=== PATIENT | male | born 1990 | race Caucasian/White ===

== ENCOUNTER 2016-11-15 05:30 | Emergency (ER) | payer SELFPAY ==
[2016-11-15 06:06] LABS: CHLORIDE,CL 106 mmol/L (98-110); SODIUM,NA 139 mmol/L (136-146)
--- NOTE | 2016-11-15 06:18 | EDM.PDOC ---
ED HISTORY OF PRESENT ILLNESS - General Chief Complaint: Chest Pain Stated Complaint: COLD SYMPTOMS Time Seen by Provider: 11/15/16 05:33 Source of Information: Reports: Patient History Limitations: Reports: No limitations - History of Present Illness INITIAL COMMENTS - FREE TEXT/NARRATIVE: HISTORY AND PHYSICAL: History of present illness: [26-year-old male with a history of bipolar depression and anxiety and psychiatric issues now presents to the emergency department complaining of dry cough for more than a week. Patient's chest is sore from coughing. He is no exertional chest pain. No pleuritic pain. No fevers chills sweats or shaking chills. Patient does not feel short of breath normally only with a coughing attack. Sometimes he coughs and it is hard to stop. no significant productivity to the cough.] Patient has no history of chronic pulmonary problems and no cardiac history Review of systems: As per history of present illness and below otherwise all systems reviewed and negative. Past medical history: As per history of present illness and as reviewed below otherwise noncontributory. Surgical history: As per history of present illness and as reviewed below otherwise noncontributory. Social history: No reported history of drug or alcohol abuse. Family history: As per history of present illness and as reviewed below otherwise noncontributory. Physical exam: HEENT: Atraumatic, normocephalic, pupils reactive, negative for conjunctival pallor or scleral icterus, mucous membranes moist, throat clear, neck supple, nontender, trachea midline. Lungs: Clear to auscultation, breath sounds equal bilaterally, chest nontender. Heart: S1S2, regular, negative for clicks, rubs, or JVD. Abdomen: Soft, nondistended, nontender. Negative for masses or hepatosplenomegaly. Negative for costovertebral tenderness. Pelvis: Stable nontender. Genitourinary: Deferred. Rectal: Deferred. Extremities: Atraumatic, negative for cords or calf pain. Neurovascular unremarkable. Neuro: Awake, alert, oriented. Cranial nerves grossly unremarkable. Cerebellum unremarkable. Motor and sensory unremarkable throughout. Exam nonfocal. Diagnostics: [EKG interpreted by me normal sinus rhythm at 86 normal axis no STEMI Chest x-ray interpreted by me and report reviewed low lung volumes no acute disease] Therapeutics: [] Impression: [] Plan: [Signs and symptoms consistent with URI likely viral. Patient with persistent dry cough for more than a week discussed with him possibility of atypical infection. We'll prescribe Zithromax to cover for this potential. Patient aware of he does not experience significant improvement with antibiotic that it is likely viral and will need to run its course. No use Mucinex DM as well as Tessalon as needed for cough and albuterol MDI as needed for symptomatic relief of coughing and wheezing patient with clearly reproducible chest wall pain secondary to cough. He states this is the chest discomfort that is felt he has no exertional chest pain pleurisy fevers chills sweats or shaking chills patient is well-appearing in stable for outpatient followup. No further workup or treatment indicated at this time. Patient agrees with outpatient followup and strict return precautions given] Definitive disposition and diagnosis as appropriate pending reevaluation and review of above. - Related Data Allergies/ADRs: Allergies Allergy/AdvReac Type Severity Reaction Status Date / Time No Known Allergies Allergy Verified 11/15/16 05:37 Home Meds: Home Meds Gabapentin [Neurontin] 300 mg PO BID 11/26/15 [History] LORazepam [Ativan] 0.5 mg PO TID 12/06/15 [History] FLUoxetine HCl [Prozac] 20 mg PO DAILY 01/30/16 [History] Propranolol [Inderal] 1 tab PO TID 03/16/16 [History] traZODone 1 tab PO DAILY 03/16/16 [History] Albuterol [Proventil HFA] 6.7 gm INH Q4H PRN #1 inhaler 11/15/16 [Rx] Azithromycin [Zithromax] 250 mg PO DAILY #6 tablet 11/15/16 [Rx] Benzonatate 200 mg PO TID #30 capsule 11/15/16 [Rx] Prednisone [IMW: predniSONE] 60 mg PO WITHBREAKFAST #21 tab 11/15/16 [Rx] Past Medical History HEENT History: Reports: None Cardiovascular History: Reports: None Respiratory History: Reports: None Gastrointestinal History: Reports: Irritable bowel syndrome Other Gastrointestinal History: " elevated liver enzymes" Genitourinary History: Reports: None Musculoskeletal History: Reports: None Neurological History: Reports: None Psychiatric History: Reports: Anxiety, Bipolar, Depression Other Psychiatric History: Cutting Endocrine/Metabolic History: Reports: None Other Endocrine/Metabolic History: short stature Hematologic History: Reports: None Immunologic History: Reports: None Oncologic (Cancer) History: Reports: None Dermatologic History: Reports: None - Infectious Disease History Infectious Disease History: Reports: Chicken pox - Past Surgical History Head Surgeries/Procedures: Reports: None HEENT Surgical History: Reports: Other (see below) Other HEENT Surgeries/Procedures: bilateral ear tubes Social & Family History - Family History Family Medical History: Noncontributory - Tobacco Use Smoking Status *Q: Current Every Day Smoker Years of Tobacco use: 2 Packs/Tins Daily: 0.2 Second Hand Smoke Exposure: No - Caffeine Use Caffeine Use: Reports: Tea - Alcohol Use Days Per Week of Alcohol Use: 1 Number of Drinks Per Day: 2 Total Drinks Per Week: 2 - Recreational Drug Use Recreational Drug Use: Yes Drug Use in Last 12 Months: Yes Recreational Drug Type: Reports: Marijuana/Hashish Recreational Drug Use Frequency: Socially Recreational Drug Last Use: one month ago ED ROS GENERAL - Review of Systems Review Of Systems: See Below (History of present illness) ED EXAM, GENERAL - Physical Exam Exam: See Below (History of present illness) Course - Vital Signs Last Recorded V/S: Last Vital Signs Temp 36 C 11/15/16 05:37 Pulse 84 11/15/16 05:37 Resp 16 11/15/16 05:37 BP 138/87 11/15/16 05:37 Pulse Ox 98 11/15/16 05:37 - Orders/Labs/Meds Orders: Active Orders 24 hr Category Date Time Status EKG 12 Lead [EKG Documentation Completion] [RC] STAT Care 11/15/16 05:36 Active Chest 1V Frontal [CR] Stat Exams 11/15/16 05:36 Taken Labs: Laboratory Tests 11/15/16 11/15/16 11/15/16 Range/Units 05:45 05:45 05:45 WBC 10.15 (4.0-11.0) K/uL RBC 5.21 (4.50-5.90) M/uL Hgb 15.3 (13.0-17.0) g/dL Hct 45.5 (38.0-50.0) % MCV 87.3 (80.0-98.0) fL MCH 29.4 (27.0-32.0) pg MCHC 33.6 (31.0-37.0) g/dL RDW Std Deviation 41.9 (28.0-62.0) fl RDW Coeff of Erin 13 (11.0-15.0) % Plt Count 255 (150-400) K/uL MPV 11.10 (7.40-12.00) fL Neut % (Auto) 58.2 (48.0-80.0) % Lymph % (Auto) 32.8 (16.0-40.0) % [place] % (Auto) 7.7 (0.0-15.0) % Eos % (Auto) 1.0 (0.0-7.0) % Baso % (Auto) 0.3 (0.0-1.5) % Neut # (Auto) 5.9 H (1.4-5.7) K/uL Lymph # (Auto) 3.3 H (0.6-2.4) K/uL [place] # (Auto) 0.8 (0.0-0.8) K/uL Eos # (Auto) 0.1 (0.0-0.7) K/uL Baso # (Auto) 0.0 (0.0-0.1) K/uL Nucleated RBC % 0.0 /100WBC Nucleated RBCs # 0 K/uL Sodium 139 (136-146) mmol/L Potassium 3.9 (3.5-5.1) mmol/L Chloride 106 (98-110) mmol/L Carbon Dioxide 22 (21-31) mmol/L BUN 11 (6.0-23.0) mg/dL Creatinine 0.9 (0.6-1.5) mg/dL Est Cr Clr Drug Dosing 87.19 mL/min Estimated GFR (MDRD) > 60.0 ml/min Glucose 99 (60-110) mg/dL Calcium 9.0 (8.8-10.8) mg/dL Total Bilirubin 0.3 (0.1-1.5) mg/dL AST 68 H (5-40) IU/L ALT 127 H (8-54) IU/L Alkaline Phosphatase 67 (40-150) CK-MB (CK-2) 2.5 (0-6.6) ng/ml Troponin I < 0.10 (0.0-0.29) NG/ML Total Protein 7.5 (6.0-8.0) g/dL Albumin 4.1 (3.5-5.0) g/dL Globulin 3.4 (2.0-3.5) g/dL Albumin/Globulin Ratio 1.2 L (1.3-2.8) Departure - Departure Time of Disposition: 06:12 Disposition: Home, Self-Care 01 Condition: good Clinical Impression: Upper respiratory infection, Cough, Chest wall pain Prescriptions: Albuterol [Proventil HFA] 6.7 gm INH Q4H PRN #1 inhaler PRN Reason: Cough Azithromycin [Zithromax] 250 mg PO DAILY #6 tablet Benzonatate 200 mg PO TID #30 capsule Prednisone [IMW: predniSONE] 60 mg PO WITHBREAKFAST #21 tab Referrals: PCP,None [Primary Care Provider] - Forms: ED Department Discharge Additional Instructions: The following information is given to patients seen in the emergency department who are being discharged to home. This information is to outline your options for follow-up care. We provide all patients seen in our emergency department with a follow-up referral. The need for follow-up, as well as the timing and circumstances, are variable depending upon the specifics of your emergency department visit. If you don't have a primary care physician on staff, we will provide you with a referral. We always advise you to contact your personal physician following an emergency department visit to inform them of the circumstance of the visit and for follow-up with them and/or the need for any referrals to a consulting specialist. The emergency department will also refer you to a specialist when appropriate. This referral assures that you have the opportunity for follow-up care with a specialist. All of these measure are taken in an effort to provide you with optimal care, which includes your follow-up. Under all circumstances we always encourage you to contact your private physician who remains a resource for coordinating your care. When calling for follow-up care, please make the office aware that this follow-up is from your recent emergency room visit. If for any reason you are refused follow-up, please contact the [facility] Emergency Department at and asked to speak to the emergency department charge nurse. You have an upper respiratory infection. Use Mucinex DM as needed for cough and to breakup mucus use Tessalon Perles as discussed if you have persistent cough. Giving you an albuterol inhaler use 2 puffs every 4 hours if you find EKG symptomatic relief of your coughing episodes. Finish Zithromax as prescribed and be sure to use a vaporizer at your bedside to help humidify the air. it is likely you will find this soothes your cough. Follow up with your Dr. in the next one to 2 days and return immediately for new severe or worsening symptoms. - My Orders Last 24 Hours: My Active Orders 11/15/16 05:36 EKG 12 Lead [EKG Documentation Completion] [RC] STAT Chest 1V Frontal [CR] Stat - Assessment/Plan Last 24 Hours: My Active Orders 11/15/16 05:36 EKG 12 Lead [EKG Documentation Completion] [RC] STAT Chest 1V Frontal [CR] Stat
[2016-11-15 06:54] VITALS: BP 119/77
--- NOTE | 2016-11-15 11:33 | CR ---
EXAM DATE: 11/15/16 PATIENT'S AGE: 26 Patient: KASSI TREVINO Facility: [place], [place] Site . Site : 1990 Study: XRay Chest [id number]/7/[id number] 6:06:19 AM Ordering Physician: Mitch Reyna Final Report: HISTORY: Cough x1 week, central chest pain x3 days. FINDINGS: AP portable chest radiograph demonstrates low lung volumes. Cardiac silhouette is acceptable size for technique and inspiration. No cephalization is seen. No infiltrate or pleural effusion. No pneumothorax. IMPRESSION: 1. Low lung volumes. 2. No acute cardiopulmonary disease. Dictated by Melissa Rivera MD @ 11/15/2016 6:07:27 AM Dictated by: Melissa Rivera MD @ 11/15/2016 06:07:29 (Electronic Signature) Report Signed by Proxy and Original Signed Document filed in the Medical Record. MTDD
== END 2016-11-15 06:50 | disposition home or self-care (01) ==
LOC: MW.ED 05:30
DX: J06.9 Acute upper respiratory infection, unspecified (principal); R07.89 Other chest pain; F41.9 Anxiety disorder, unspecified; F31.9 Bipolar disorder, unspecified; F17.210 Nicotine dependence, cigarettes, uncomplicated; Z79.899 Other long term (current) drug therapy
CPT/HCPCS: 36415; 71010; 71010-26; 80053; 82553; 84484; 85025; 93005; 99283; 99285-25

== ENCOUNTER 2020-05-07 09:59 | Emergency (ER) | payer MEDICAID, OTHER ==
[2020-05-07] MEDS ORDERED: Sodium Chloride 0.9% 2.5 ML Syringe FLUSH PRN (10:36)
[2020-05-07] MEDS ORDERED: Sodium Chloride 0.9% 10 ML Syringe FLUSH PRN (10:36)
[2020-05-07] MEDS ORDERED: Lactated Ringers 1,000 ML IV ONE (10:38)
[2020-05-07] MEDS ORDERED: Ketorolac 30 MG/ML SDV IVPUSH ONE (10:38)
[2020-05-07] MEDS ORDERED: Ondansetron 4 MG/2 ML SDV IVPUSH ONE (10:38)
--- NOTE | 2020-05-07 10:49 | EDM.PDOC ---
ED HPI GENERAL MEDICAL PROBLEM - General Chief Complaint: Flank Pain Stated Complaint: SIDE PAIN Time Seen by Provider: 05/07/20 10:03 Source of Information: Reports: Patient History Limitations: Reports: No Limitations - History of Present Illness INITIAL COMMENTS - FREE TEXT/NARRATIVE: 29-year-old male with history of IBS, DM 2 presents with left flank pain for 3 days. Pain is described as sharp, intermittent, pleuritic, radiates from the left flank to the left upper quadrant, exacerbated with taking a deep breath and coughing. Denies fever, chills, nausea, vomiting, chest pain, shortness of breath, dysuria, hematuria. Admits to dry cough. ROS: A 10-point review of systems, other than pertinent positives and negatives as stated per HPI, is otherwise negative Past medical history: No additional pertinent history Past Surgical history: No additional pertinent history Social history: No additional pertinent history Family history: No additional pertinent history PHYSICAL EXAM General: AOx4, GCS = 15, mild distress HEENT: dry mucous membrane Neck: supple, no meningismus, no Kernig or Brudzinski Cardiac: S1S2 RRR Respiratory: CTAB, no crackles or rales, no wheezing Abdomen: Soft, nontender, no rebound or guarding, nondistended, no pulsatile mass. Back: nontender Musculoskeletal: NVI distally, no deformity Neuro: No focal deficits, CN 2 - 12 WNL. left flank pain Pain Score (Numeric/FACES): 8 - Related Data Allergies Allergy/AdvReac Type Severity Reaction Status Date / Time No Known Allergies Allergy Verified 05/07/20 10:11 Home Meds: Home Meds Gabapentin [Neurontin] 300 mg PO TID 11/26/15 [History] LORazepam [Ativan] 0.5 mg PO TID 12/06/15 [History] FLUoxetine HCl [Prozac] 20 mg PO DAILY 01/30/16 [History] traZODone 1 tab PO DAILY 03/16/16 [History] ARIPiprazole [Abilify] 2 mg PO BEDTIME 05/07/20 [History] Dicyclomine [Bentyl] 10 mg PO TID 05/07/20 [History] Non-Formulary Medication [NF Drug] 1 each INH ASDIRECTED 05/07/20 [History] Omeprazole Magnesium [Prilosec Otc] 20 mg PO BID #30 tablet. 05/07/20 [Rx] Zolpidem [Ambien] 10 mg PO BEDTIME 05/07/20 [History] lisinopriL [Lisinopril] 10 mg PO DAILY 05/07/20 [History] Past Medical History HEENT History: Reports: None Cardiovascular History: Reports: Hypertension Respiratory History: Reports: None Gastrointestinal History: Reports: Irritable Bowel Syndrome Other Gastrointestinal History: " elevated liver enzymes" Genitourinary History: Reports: None Musculoskeletal History: Reports: None Neurological History: Reports: None Psychiatric History: Reports: Anxiety, Bipolar, Depression Other Psychiatric History: Cutting Endocrine/Metabolic History: Reports: Diabetes, Type II Other Endocrine/Metabolic History: short stature Hematologic History: Reports: None Immunologic History: Reports: None Oncologic (Cancer) History: Reports: None Dermatologic History: Reports: None - Infectious Disease History Infectious Disease History: Reports: Chicken Pox - Past Surgical History Head Surgeries/Procedures: Reports: None HEENT Surgical History: Reports: Other (See Below) Social & Family History - Family History Family Medical History: Noncontributory - Tobacco Use Smoking Status *Q: Former Smoker Used Tobacco, but Quit: Yes Month/Year Tobacco Last Used: 2018 - Caffeine Use Caffeine Use: Reports: Tea - Recreational Drug Use Recreational Drug Use: No ED ROS GENERAL - Review of Systems Review Of Systems: See Below (see dictation) ED EXAM, GI/ABD - Physical Exam Exam: See Below (see dictation) EKG INTERPRETATION EKG Interpretation Comments: [] bpm, NSR, normal QRS interval, no STEMI. EKG and rhythm strip interpreted by me at [] Course - Vital Signs Last Recorded V/S: Last Vital Signs Temp 96.2 F L 05/07/20 10:16 Pulse 84 05/07/20 10:16 Resp 16 05/07/20 10:16 BP 134/84 05/07/20 10:16 Pulse Ox 96 05/07/20 10:16 - Orders/Labs/Meds Orders: Active Orders 24 hr Category Date Time Status Cardiac Monitoring [RC] . DIRECTED Care 05/07/20 10:36 Active EKG Documentation Completion [RC] STAT Care 05/07/20 10:37 Active Pulse Oximetry [RC] ASDIRECTED Care 05/07/20 10:36 Active Sodium Chloride 0.9% [Saline Flush] Med 05/07/20 10:36 Active 10 ml FLUSH ASDIRECTED PRN Sodium Chloride 0.9% [Saline Flush] Med 05/07/20 10:36 Active 2.5 ml FLUSH ASDIRECTED PRN Saline Lock Insert [OM.PC] Stat Oth 05/07/20 10:37 Ordered Medication Orders Sodium Chloride (Saline Flush) 10 ml FLUSH ASDIRECTED PRN PRN Reason: Keep Vein Open Last Admin: 05/07/20 10:45 Dose: 10 ml Documented by: KELLEN Sodium Chloride (Saline Flush) 2.5 ml FLUSH ASDIRECTED PRN PRN Reason: Keep Vein Open Last Admin: 05/07/20 10:45 Dose: 2.5 ml Documented by: KELLEN Labs: Laboratory Tests 05/07/20 05/07/20 05/07/20 Range/Units 10:20 10:20 10:22 WBC 9.96 (4.0-11.0) K/uL RBC 5.40 (4.50-5.90) M/uL Hgb 15.8 (13.0-17.0) g/dL Hct 47.6 (38.0-50.0) % MCV 88.1 (80.0-98.0) fL MCH 29.3 (27.0-32.0) pg MCHC 33.2 (31.0-37.0) g/dL RDW Std Deviation 44.6 (28.0-62.0) fl RDW Coeff of Erin 14 (11.0-15.0) % Plt Count 237 (150-400) K/uL MPV 11.00 (7.40-12.00) fL Neut % (Auto) 53.8 (48.0-80.0) % Lymph % (Auto) 38.3 (16.0-40.0) % [place] % (Auto) 5.4 (0.0-15.0) % Eos % (Auto) 2.3 (0.0-7.0) % Baso % (Auto) 0.2 (0.0-1.5) % Neut # (Auto) 5.4 (1.4-5.7) K/uL Lymph # (Auto) 3.8 H (0.6-2.4) K/uL [place] # (Auto) 0.5 (0.0-0.8) K/uL Eos # (Auto) 0.2 (0.0-0.7) K/uL Baso # (Auto) 0.0 (0.0-0.1) K/uL Nucleated RBC % 0.0 /100WBC Nucleated RBCs # 0 K/uL INR 0.95 D-Dimer, Quantitative 0.24 (0.0-0.50) mg/L FEU Sodium 138 (136-148) mmol/L Potassium 4.3 (3.5-5.1) mmol/L Chloride 103 (98-107) mmol/L Carbon Dioxide 22.4 (21.0-32.0) mmol/L BUN 15 (7.0-18.0) mg/dL Creatinine 0.9 (0.8-1.3) mg/dL Est Cr Clr Drug Dosing 84.88 mL/min Estimated GFR (MDRD) > 60.0 ml/min Glucose 186 H (74-106) mg/dL Calcium 8.6 (8.5-10.1) mg/dL Total Bilirubin 0.2 (0.2-1.0) mg/dL AST 50 H (15-37) IU/L ALT 148 H (14-63) IU/L Alkaline Phosphatase 78 (46-116) U/L Troponin I < 0.050 (0.000-0.056) ng/mL Total Protein 7.8 (6.4-8.2) g/dL Albumin 3.9 (3.4-5.0) g/dL Globulin 3.9 (2.6-4.0) g/dL Albumin/Globulin Ratio 1.0 (0.9-1.6) Lipase 205 (73-393) U/L Urine Color Urine Appearance Urine pH (5.0-8.0) Ur Specific [place] (1.001-1.035) Urine Protein (NEGATIVE) mg/dL Urine Glucose (UA) (NEGATIVE) mg/dL Urine Ketones (NEGATIVE) mg/dL Urine Occult Blood (NEGATIVE) Urine Nitrite (NEGATIVE) Urine Bilirubin (NEGATIVE) Urine Urobilinogen (<2.0) EU/dL Ur Leukocyte Esterase (NEGATIVE) Urine RBC (0-2/HPF) Urine WBC (0-5/HPF) Ur Epithelial Cells (NONE-FEW) Urine Bacteria (NEGATIVE) Urine Mucus (NONE-MOD) 05/07/20 Range/Units 11:31 WBC (4.0-11.0) K/uL RBC (4.50-5.90) M/uL Hgb (13.0-17.0) g/dL Hct (38.0-50.0) % MCV (80.0-98.0) fL MCH (27.0-32.0) pg MCHC (31.0-37.0) g/dL RDW Std Deviation (28.0-62.0) fl RDW Coeff of [place] (11.0-15.0) % Plt Count (150-400) K/uL MPV (7.40-12.00) fL Neut % (Auto) (48.0-80.0) % Lymph % (Auto) (16.0-40.0) % [place] % (Auto) (0.0-15.0) % Eos % (Auto) (0.0-7.0) % Baso % (Auto) (0.0-1.5) % Neut # (Auto) (1.4-5.7) K/uL Lymph # (Auto) (0.6-2.4) K/uL [place] # (Auto) (0.0-0.8) K/uL Eos # (Auto) (0.0-0.7) K/uL Baso # (Auto) (0.0-0.1) K/uL Nucleated RBC % /100WBC Nucleated RBCs # K/uL INR D-Dimer, Quantitative (0.0-0.50) mg/L FEU Sodium (136-148) mmol/L Potassium (3.5-5.1) mmol/L Chloride (98-107) mmol/L Carbon Dioxide (21.0-32.0) mmol/L BUN (7.0-18.0) mg/dL Creatinine (0.8-1.3) mg/dL Est Cr Clr Drug Dosing mL/min Estimated GFR (MDRD) ml/min Glucose (74-106) mg/dL Calcium (8.5-10.1) mg/dL Total Bilirubin (0.2-1.0) mg/dL AST (15-37) IU/L ALT (14-63) IU/L Alkaline Phosphatase (46-116) U/L Troponin I (0.000-0.056) ng/mL Total Protein (6.4-8.2) g/dL Albumin (3.4-5.0) g/dL Globulin (2.6-4.0) g/dL Albumin/Globulin Ratio (0.9-1.6) Lipase (73-393) U/L Urine Color YELLOW Urine Appearance CLEAR Urine pH 5.5 (5.0-8.0) Ur Specific [place] >= 1.030 (1.001-1.035) Urine Protein NEGATIVE (NEGATIVE) mg/dL Urine Glucose (UA) NEGATIVE (NEGATIVE) mg/dL Urine Ketones NEGATIVE (NEGATIVE) mg/dL Urine Occult Blood NEGATIVE (NEGATIVE) Urine Nitrite NEGATIVE (NEGATIVE) Urine Bilirubin NEGATIVE (NEGATIVE) Urine Urobilinogen 0.2 (<2.0) EU/dL Ur Leukocyte Esterase NEGATIVE (NEGATIVE) Urine RBC 0-2 (0-2/HPF) Urine WBC 0-2 (0-5/HPF) Ur Epithelial Cells FEW (NONE-FEW) Urine Bacteria RARE (NEGATIVE) Urine Mucus LIGHT (NONE-MOD) Meds: Medications Generic Name Dose Route Start Last Admin Trade Name Jef PRN Reason Stop Dose Admin Sodium Chloride 10 ml 05/07/20 10:36 05/07/20 10:45 Saline Flush FLUSH 10 ml ASDIRECTED PRN Administration Keep Vein Open Sodium Chloride 2.5 ml 05/07/20 10:36 05/07/20 10:45 Saline Flush FLUSH 2.5 ml ASDIRECTED PRN Administration Keep Vein Open Discontinued Medications Generic Name Dose Route Start Last Admin Trade Name Frecrystal PRN Reason Stop Dose Admin Al Hydroxide/Mg Hydroxide 15 0 ml 05/07/20 13:05 05/07/20 13:13 ml/ Metoclopramide HCl 5 mg/ PO 05/07/20 13:06 1 each Lidocaine HCl 5 ml ONETIME ONE Administration Lactated Ringer's 1,000 mls @ 999 mls/hr 05/07/20 10:38 05/07/20 10:46 Ringers, Lactated IV 05/07/20 11:38 999 mls/hr .BOLUS ONE Administration Pantoprazole Sodium 40 mg/ 20 mls @ 420 mls/hr 05/07/20 13:05 05/07/20 13:16 Sodium Chloride IVPUSH 05/07/20 13:07 420 mls/hr ONETIME ONE Administration Ketorolac Tromethamine 30 mg 05/07/20 10:38 05/07/20 10:46 Toradol IVPUSH 05/07/20 10:39 30 mg ONETIME ONE Administration Ondansetron HCl 4 mg 05/07/20 10:38 05/07/20 10:46 Zofran IVPUSH 05/07/20 10:39 4 mg ONETIME ONE Administration - Re-Assessments/Exams Free Text/Narrative Re-Assessment/Exam: 05/07/20 14:03 After IV Protonix, GI cocktail in the ER, the patient improved and is currently stable for discharge. I performed a repeat exam and did not appreciate new abnormal findings. Patient exhibits normal vital signs and has a normal gait on road test. I advised the patient to return to the ER for reevaluation if symptoms worsened, including fever, worsening pain, or any other worrisome sympt oms. I instructed the patient to follow up with their PCP within 2-3 days. MEDICAL DECISION MAKING: I reviewed the patients past medical records, lab and radiographic findings. I discussed the case with the patient. My differential diagnosis included: Ureterolithiasis, pulmonary embolism, gastritis, GERD, peptic ulcer disease. His abdomen was soft, nontender, no rebound or guarding, I do not suspect surgical abdomen warranting surgery consult. CT did not demonstrate left ureteral stone, his d-dimer was unremarkable, I do not suspect pulmonary embolism, symptoms were resolved after IV PPI and GI cocktail, I suspect gastritis versus peptic ulcer disease. He is stable for outpatient follow-up with GI for further assessment. Departure - Departure Time of Disposition: 14:05 Disposition: Home, Self-Care 01 Condition: Good Clinical Impression: Abdominal pain - Discharge Information *PRESCRIPTION DRUG MONITORING PROGRAM REVIEWED*: Not Applicable *COPY OF PRESCRIPTION DRUG MONITORING REPORT IN PATIENT TABATHA: Not Applicable Prescriptions: Omeprazole Magnesium [Prilosec Otc] 20 mg PO BID #30 tablet.dr Instructions: Abdominal Pain, Adult, [id number] Referrals: Piedad Wall PA [Primary Care Provider] - 1 Week Forms: ED Department Discharge Additional Instructions: The need for follow-up, as well as the timing and circumstances, are variable depending upon the specifics of your emergency department visit. If you don't have a primary care physician on staff, we will provide you with a referral. We always advise you to contact your personal physician following an emergency department visit to inform them of the circumstance of the visit and for follow-up with them and/or the need for any referrals to a consulting specialist. The emergency department will also refer you to a specialist when appropriate. This referral assures that you have the opportunity for follow-up care with a specialist. All of these measure are taken in an effort to provide you with optimal care, which includes your follow-up. Under all circumstances we always encourage you to contact your private physician who remains a resource for coordinating your care. When calling for f ollow-up care, please make the office aware that this follow-up is from your recent emergency room visit. If for any reason you are refused follow-up, please contact the [facility] Emergency Department at and asked to speak to the emergency department charge nurse. If you do not have a primary care doctor, please follow up with the clinics below within 3-5 days. [facility] - Primary Care [address] [place] [id number] [address] Sepsis Event Note (ED) - Evaluation Sepsis Screening Result: No Definite Risk - Focused Exam Vital Signs: Vital Signs Temp Pulse Resp BP Pulse Ox 05/07/20 10:16 96.2 F L 84 16 134/84 96 - My Orders Last 24 Hours: My Active Orders 05/07/20 10:36 Cardiac Monitoring [RC] . DIRECTED Pulse Oximetry [RC] ASDIRECTED Sodium Chloride 0.9% [Saline Flush] 10 ml FLUSH ASDIRECTED PRN Sodium Chloride 0.9% [Saline Flush] 2.5 ml FLUSH ASDIRECTED PRN 05/07/20 10:37 EKG Documentation Completion [RC] STAT Saline Lock Insert [OM.PC] Stat - Assessment/Plan Last 24 Hours: My Active Orders 05/07/20 10:36 Cardiac Monitoring [RC] . DIRECTED Pulse Oximetry [RC] ASDIRECTED Sodium Chloride 0.9% [Saline Flush] 10 ml FLUSH ASDIRECTED PRN Sodium Chloride 0.9% [Saline Flush] 2.5 ml FLUSH ASDIRECTED PRN 05/07/20 10:37 EKG Documentation Completion [RC] STAT Saline Lock Insert [OM.PC] Stat
[2020-05-07 10:55] LABS: BLOOD UREA NITROGEN,BUN 15 mg/dL (7.0-18.0); CARBON DIOXIDE,CO2 22.4 mmol/L (21.0-32.0); CHLORIDE,CL 103 mmol/L (98-107); GLUCOSE RANDOM 186 mg/dL (74-106); LIPASE 205 U/L (73-393); POTASSIUM,K 4.3 mmol/L (3.5-5.1); SODIUM,NA 138 mmol/L (136-148)
--- NOTE | 2020-05-07 11:07 | CR ---
Chest: AP view of the chest was obtained utilizing portable technique. Comparison: Prior chest x-ray of 11/15/16. Heart size and mediastinum are normal. Lungs are clear with no acute parenchymal change. Bony structures are grossly intact. Impression: 1. Nothing acute is seen on portable chest x-ray. Diagnostic code #1 This report was dictated in MDT
--- NOTE | 2020-05-07 12:39 | CT ---
CT abdomen and pelvis Technique: Multiple axial sections were obtained from above the dome of the diaphragm inferiorly through the pubic symphysis. Intravenous and oral contrast not utilized. Study has been performed as a ureteral stone protocol. Findings: Kidneys show no abnormal calcifications. No ureteral dilatation or ureteral stone is seen. No bladder calculi are seen. Lung window settings shows no acute finding within the visualized lung bases. Spleen appears within normal limits. Liver shows diffuse fatty infiltration. Gallbladder contains no calcified gallstones. Adrenal glands show no nodule. Pancreas shows no discrete abnormality. Aorta shows no aneurysm. No retroperitoneal adenopathy or mesenteric abnormalities are seen. Appendix is seen which is normal in size. No free fluid or inflammatory change is appreciated. Bone window settings were reviewed which shows no acute osseous finding. Impression: 1. No renal calculi, ureteral dilatation or ureteral stone is seen. 2. Diffuse fatty infiltration is noted within the liver. 3. Nothing acute is otherwise appreciated on noncontrast CT study of the abdomen and pelvis. No etiology is identified to explain the patient's left flank pain. Diagnostic code #2 This report was dictated in MDT
[2020-05-07] MEDS ORDERED: Alum Hydrox/Mag Hydrox/Simeth 15 ML, Metoclopramide 5 MG, Lidocaine 2% 5 ML PO ONE ×3 (13:05)
[2020-05-07] MEDS ORDERED: Pantoprazole 40 MG in Sodium Chloride 0.9% 20 ML IVPUSH ONE (13:05)
[2020-05-07 15:56] VITALS: BP 139/82; PULSE 80
== END 2020-05-07 14:23 | disposition home or self-care (01) ==
LOC: MW.ED 09:59
DX: R10.11 Right upper quadrant pain (principal); E11.9 Type 2 diabetes mellitus without complications; F41.9 Anxiety disorder, unspecified; F31.9 Bipolar disorder, unspecified; I10 Essential (primary) hypertension; Z87.891 Personal history of nicotine dependence; Z79.899 Other long term (current) drug therapy
CPT/HCPCS: 36415; 71045; 74176; 80053; 81001; 83690; 84484; 85025; 85379; 85610; 93005; 96361; 96374; 96375; 99284; A9270; C9113; J1885; J2405; J7120; 99283

== ENCOUNTER 2020-09-17 20:29 | Emergency (ER) | payer MEDICAID, OTHER ==
--- NOTE | 2020-09-17 20:51 | EDM.PDOC ---
ED HPI GENERAL MEDICAL PROBLEM - General Chief Complaint: Behavioral/Psych Stated Complaint: SUICIDAL IDEATION Time Seen by Provider: 09/17/20 20:42 Source of Information: Reports: Patient History Limitations: Reports: No Limitations - History of Present Illness INITIAL COMMENTS - FREE TEXT/NARRATIVE: 30-year-old with history of bipolar, depression, anxiety, IBS presents with a nxiety and chronic abdominal pain. Abdominal pain is chronic over the past 2 weeks, waxes and wanes, localized to the right upper quadrant, nonradiating, sharp, mild, no alleviating or exacerbating factors. Patient admits to nausea and dry heaving. Patient denies fever, chills, headache, chest pain, shortness of breath, focal numbness or weakness. He also denies suicidal ideation, homicidal ideation, auditory or visual hallucinations. He is requesting to go to [facility] for assessment for his anxiety. ROS: A 10-point review of systems, other than pertinent positives and negatives as stated per HPI, is otherwise negative Past medical history: No additional pertinent history Past Surgical history: No additional pertinent history Social history: No additional pertinent history Family history: No additional pertinent history PHYSICAL EXAM General: AOx4, GCS = 15, No distress HEENT: dry mucous membrane Neck: supple, no meningismus, no Kernig or Brudzinski Cardiac: S1S2 RRR Respiratory: CTAB, no crackles or rales, no wheezing Abdomen: Soft, nontender, no rebound or guarding, nondistended, no pulsatile mass. Back: nontender Musculoskeletal: NVI distally, no deformity Neuro: No focal deficits, CN 2 - 12 WNL. - Related Data Allergies Allergy/AdvReac Type Severity Reaction Status Date / Time No Known Allergies Allergy Verified 09/17/20 20:41 Home Meds: Home Meds ARIPiprazole [Abilify] 2 mg PO DAILY 09/17/20 [History] Dicyclomine [Bentyl] 10 mg PO TID 09/17/20 [History] FLUoxetine HCl [Prozac] 40 mg PO DAILY 09/17/20 [History] LORazepam [Lorazepam] 0.5 mg PO TID PRN 09/17/20 [History] Zolpidem Tartrate [Ambien] 10 mg PO BEDTIME 09/17/20 [History] metFORMIN [Glucophage] 1,000 mg PO BID 09/17/20 [History] ED ROS GENERAL - Review of Systems Review Of Systems: See Below (see dictation) ED EXAM, GENERAL - Physical Exam Exam: See Below (see dictation) #1 Interpretation EKG Interpretation Comments: Heart rate = 87 bpm, normal sinus rhythm, normal QRS interval, no STEMI. EKG and rhythm strip interpreted by me at 2046 Course - Vital Signs Last Recorded V/S: Last Vital Signs Temp 98.1 F 09/17/20 20:35 Pulse 91 09/17/20 20:35 Resp 18 09/17/20 20:35 BP 143/88 H 09/17/20 20:35 Pulse Ox 95 09/17/20 20:35 - Orders/Labs/Meds Orders: Active Orders 24 hr Category Date Time Status EKG Documentation Completion [RC] STAT Care 09/17/20 20:42 Active Labs: Laboratory Tests 09/17/20 09/17/20 09/17/20 Range/Units 20:30 20:30 20:57 WBC 11.77 H (4.0-11.0) K/uL RBC 5.64 (4.50-5.90) M/uL Hgb 16.7 (13.0-17.0) g/dL Hct 49.0 (38.0-50.0) % MCV 86.9 (80.0-98.0) fL MCH 29.6 (27.0-32.0) pg MCHC 34.1 (31.0-37.0) g/dL RDW Std Deviation 42.0 (28.0-62.0) fl RDW Coeff of Erin 13 (11.0-15.0) % Plt Count 273 (150-400) K/uL MPV 11.40 (7.40-12.00) fL Neut % (Auto) 51.6 (48.0-80.0) % Lymph % (Auto) 35.2 (16.0-40.0) % [place] % (Auto) 11.6 (0.0-15.0) % Eos % (Auto) 1.3 (0.0-7.0) % Baso % (Auto) 0.3 (0.0-1.5) % Neut # (Auto) 6.1 H (1.4-5.7) K/uL Lymph # (Auto) 4.1 H (0.6-2.4) K/uL [place] # (Auto) 1.4 H (0.0-0.8) K/uL Eos # (Auto) 0.2 (0.0-0.7) K/uL Baso # (Auto) 0.0 (0.0-0.1) K/uL Nucleated RBC % 0.0 /100WBC Nucleated RBCs # 0 K/uL Sodium (136-148) mmol/L Potassium (3.5-5.1) mmol/L Chloride (98-107) mmol/L Carbon Dioxide (21.0-32.0) mmol/L BUN (7.0-18.0) mg/dL Creatinine (0.8-1.3) mg/dL Est Cr Clr Drug Dosing mL/min Estimated GFR (MDRD) ml/min Glucose (74-106) mg/dL Calcium (8.5-10.1) mg/dL Magnesium (1.8-2.4) mg/dL Total Bilirubin (0.2-1.0) mg/dL AST (15-37) IU/L ALT (14-63) IU/L Alkaline Phosphatase (46-116) U/L Total Protein (6.4-8.2) g/dL Albumin (3.4-5.0) g/dL Globulin (2.6-4.0) g/dL Albumin/Globulin Ratio (0.9-1.6) Lipase (73-393) U/L TSH 3rd Generation (0.36-3.74) uIU/mL Urine Color YELLOW Urine Appearance SLT CLOUDY Urine pH 5.5 (5.0-8.0) Ur Specific [place] >= 1.030 (1.001-1.035) Urine Protein TRACE H (NEGATIVE) mg/dL Urine Glucose (UA) NEGATIVE (NEGATIVE) mg/dL Urine Ketones NEGATIVE (NEGATIVE) mg/dL Urine Occult Blood NEGATIVE (NEGATIVE) Urine Nitrite NEGATIVE (NEGATIVE) Urine Bilirubin NEGATIVE (NEGATIVE) Urine Urobilinogen 0.2 (<2.0) EU/dL Ur Leukocyte Esterase NEGATIVE (NEGATIVE) U Hyaline Cast (Auto) 0-1 (0-2/LPF) Urine RBC 0-2 (0-2/HPF) Urine WBC 0-2 (0-5/HPF) Ur Epithelial Cells RARE (NONE-FEW) Amorphous Sediment LIGHT (NEGATIVE) Urine Bacteria FEW (NEGATIVE) Urine Mucus LIGHT (NONE-MOD) Salicylates (0-20) mg/dL Urine Opiates Screen NEGATIVE (NEGATIVE) Ur Oxycodone Screen NEGATIVE (NEGATIVE) Urine Methadone Screen NEGATIVE (NEGATIVE) Acetaminophen ug/mL Ur Barbiturates Screen NEGATIVE (NEGATIVE) Ur Phencyclidine Scrn POSITIVE (NEGATIVE) Ur Amphetamine Screen NEGATIVE (NEGATIVE) U Methamphetamines Scrn NEGATIVE (NEGATIVE) U Benzodiazepines Scrn NEGATIVE (NEGATIVE) U Cocaine Metab Screen NEGATIVE (NEGATIVE) U Marijuana (THC) Screen POSITIVE (NEGATIVE) Ethyl Alcohol mg/dL 09/17/20 09/17/20 Range/Units 20:57 20:57 WBC (4.0-11.0) K/uL RBC (4.50-5.90) M/uL Hgb (13.0-17.0) g/dL Hct (38.0-50.0) % MCV (80.0-98.0) fL MCH (27.0-32.0) pg MCHC (31.0-37.0) g/dL RDW Std Deviation (28.0-62.0) fl RDW Coeff of Erin (11.0-15.0) % Plt Count (150-400) K/uL MPV (7.40-12.00) fL Neut % (Auto) (48.0-80.0) % Lymph % (Auto) (16.0-40.0) % [place] % (Auto) (0.0-15.0) % Eos % (Auto) (0.0-7.0) % Baso % (Auto) (0.0-1.5) % Neut # (Auto) (1.4-5.7) K/uL Lymph # (Auto) (0.6-2.4) K/uL [place] # (Auto) (0.0-0.8) K/uL Eos # (Auto) (0.0-0.7) K/uL Baso # (Auto) (0.0-0.1) K/uL Nucleated RBC % /100WBC Nucleated RBCs # K/uL Sodium 140 (136-148) mmol/L Potassium 4.0 (3.5-5.1) mmol/L Chloride 103 (98-107) mmol/L Carbon Dioxide 24.4 (21.0-32.0) mmol/L BUN 29 H (7.0-18.0) mg/dL Creatinine 1.3 (0.8-1.3) mg/dL Est Cr Clr Drug Dosing 58.23 mL/min Estimated GFR (MDRD) > 60.0 ml/min Glucose 159 H (74-106) mg/dL Calcium 10.0 (8.5-10.1) mg/dL Magnesium 2.3 (1.8-2.4) mg/dL Total Bilirubin 0.5 (0.2-1.0) mg/dL AST 40 H (15-37) IU/L ALT 108 H (14-63) IU/L Alkaline Phosphatase 63 (46-116) U/L Total Protein 8.7 H (6.4-8.2) g/dL Albumin 4.3 (3.4-5.0) g/dL Globulin 4.4 H (2.6-4.0) g/dL Albumin/Globulin Ratio 1.0 (0.9-1.6) Lipase 547 H (73-393) U/L TSH 3rd Generation 1.78 (0.36-3.74) uIU/mL Urine Color Urine Appearance Urine pH (5.0-8.0) Ur Specific [place] (1.001-1.035) Urine Protein (NEGATIVE) mg/dL Urine Glucose (UA) (NEGATIVE) mg/dL Urine Ketones (NEGATIVE) mg/dL Urine Occult Blood (NEGATIVE) Urine Nitrite (NEGATIVE) Urine Bilirubin (NEGATIVE) Urine Urobilinogen (<2.0) EU/dL Ur Leukocyte Esterase (NEGATIVE) U Hyaline Cast (Auto) (0-2/LPF) Urine RBC (0-2/HPF) Urine WBC (0-5/HPF) Ur Epithelial Cells (NONE-FEW) Amorphous Sediment (NEGATIVE) Urine Bacteria (NEGATIVE) Urine Mucus (NONE-MOD) Salicylates 1.4 (0-20) mg/dL Urine Opiates Screen (NEGATIVE) Ur Oxycodone Screen (NEGATIVE) Urine Methadone Screen (NEGATIVE) Acetaminophen <2.0 ug/mL Ur Barbiturates Screen (NEGATIVE) Ur Phencyclidine Scrn (NEGATIVE) Ur Amphetamine Screen (NEGATIVE) U Methamphetamines Scrn (NEGATIVE) U Benzodiazepines Scrn (NEGATIVE) U Cocaine Metab Screen (NEGATIVE) U Marijuana (THC) Screen (NEGATIVE) Ethyl Alcohol < 3.0 mg/dL Meds: Medications Discontinued Medications Generic Name Dose Route Start Last Admin Trade Name Jef PRN Reason Stop Dose Admin Morphine Sulfate 4 mg 09/17/20 22:01 09/17/20 22:13 Morphine IVPUSH 09/17/20 22:02 Not Given ONETIME ONE - Re-Assessments/Exams Free Text/Narrative Re-Assessment/Exam: 09/17/20 22:55 He is currently stable for discharge to [facility] for his anxiety. I performed a repeat exam and did not appreciate new abnormal findings. Patient exhibits normal vital signs and has a normal gait on road test. I advised the patient to return to the ER for reevaluation if symptoms worsened, including fever, worsening pain, or any other worrisome symptoms. I instructed the patient to follow up with their PCP within 2-3 days. MEDICAL DECISION MAKING: I reviewed the patients past medical records, lab and radiographic findings. I discussed the case with the patient. My differential diagnosis included: IBS, colitis, obstruction, pancreatitis. His lipase was slightly elevated, however his exam is benign, I do not suspect need for hosp italization for pain control. Patient will be discharged to [facility] for his anxiety. Departure - Departure Time of Disposition: 22:56 Disposition: Home, Self-Care 01 Condition: Good Clinical Impression: Anxiety, Abdominal pain - Discharge Information *PRESCRIPTION DRUG MONITORING PROGRAM REVIEWED*: Not Applicable *COPY OF PRESCRIPTION DRUG MONITORING REPORT IN PATIENT TABATHA: Not Applicable Instructions: Abdominal Pain, Adult, [id number], Managing Anxiety, Adult Referrals: Piedad Wall PA [Primary Care Provider] - 3 Days Forms: ED Department Discharge Additional Instructions: The need for follow-up, as well as the timing and circumstances, are variable depending upon the specifics of your emergency department visit. If you don't have a primary care physician on staff, we will provide you with a referral. We always advise you to contact your personal physician following an emergency department visit to inform them of the circumstance of the visit and for follow-up with them and/or the need for any referrals to a consulting specialist. The emergency department will also refer you to a specialist when appropriate. This referral assures that you have the opportunity for follow-up care with a specialist. All of these measure are taken in an effort to provide you with optimal care, which includes your follow-up. Under all circumstances we always encourage you to contact your private physician who remains a resource for coordinating your care. When calling for f ollow-up care, please make the office aware that this follow-up is from your recent emergency room visit. If for any reason you are refused follow-up, please contact the [facility] Emergency Department at and asked to speak to the emergency department charge nurse. If you do not have a primary care doctor, please follow up with the clinics below within 3-5 days. [facility] - Primary Care [address] [place] [id number] [address] Sepsis Event Note (ED) - Focused Exam Vital Signs: Vital Signs Temp Pulse Resp BP Pulse Ox 09/17/20 20:35 98.1 F 91 18 143/88 H 95 - My Orders Last 24 Hours: My Active Orders 09/17/20 20:42 EKG Documentation Completion [RC] STAT - Assessment/Plan Last 24 Hours: My Active Orders 09/17/20 20:42 EKG Documentation Completion [RC] STAT
[2020-09-17 21:33] LABS: BLOOD UREA NITROGEN,BUN 29 mg/dL (7.0-18.0); CARBON DIOXIDE,CO2 24.4 mmol/L (21.0-32.0); CHLORIDE,CL 103 mmol/L (98-107); GLUCOSE RANDOM 159 mg/dL (74-106); SODIUM,NA 140 mmol/L (136-148)
[2020-09-17 21:35] LABS: ACETAMINOPHEN <2.0 ug/mL
[2020-09-17] MEDS ORDERED: Morphine 4 MG/ML Syringe IVPUSH ONE (22:01)
--- NOTE | 2020-09-17 22:39 | CR ---
Indication: Right-sided abdominal pain Technique: Abdomen 1 view Comparison: None Findings/Impression: No dilated loops of large or small intestine. No abnormal calcifications. Osseous structures unremarkable. Lung bases clear. Dictated by Jaylen Lau MD @ Sep 17 2020 10:35PM Signed by Dr. Jaylen Lau @ Sep 17 2020 10:36PM
[2020-09-17 23:50] VITALS: BP 136/72; PULSE 72
== END 2020-09-17 23:50 | disposition home or self-care (01) ==
LOC: MERGE 20:29 → MW.ED 20:29
DX: F41.9 Anxiety disorder, unspecified (principal); R10.11 Right upper quadrant pain
CPT/HCPCS: 36415; 74018; 74018-26; 80053; 80143; 80179; 80305-QW; 80307; 81001; 83690; 83735; 84443; 85025; 93005; 93010; 99283; 99284-25

== ENCOUNTER 2020-12-27 22:10 | Emergency (ER) | payer MEDICAID ==
--- NOTE | 2020-12-27 23:01 | EDM.PDOC ---
ED HPI GENERAL MEDICAL PROBLEM - General Chief Complaint: Behavioral/Psych Stated Complaint: SUIDIAL THOUGHTS Time Seen by Provider: 12/27/20 22:20 - History of Present Illness INITIAL COMMENTS - FREE TEXT/NARRATIVE: HISTORY AND PHYSICAL: History of present illness: This is a 30-year-old gentleman with a history significant for anxiety, bipolar, depression who presents ER today secondary to having fleeting thoughts of suicidal ideation after having an argument with his mother. Patient reports that he was having a political argument with his mother earlier today and felt like he was not being heard by his mom so he got up and left her home. While he was leaving she asked him to not stay at the house and to go back to his apartment. Patient went back to the apartment and was depressed over the argument and when having fleeting thoughts about taking his Prozac followed by cough syrup. Patient reports he has never had any prior suicidal ideation or attempts. Patient reports that he would never harm himself and would have no intent of actually following through that but did not like having the thoughts he was having so he came to the ED for further evaluation. Patient reports while he was walking here his thoughts the escalated and he is no longer having suicidal thoughts. Patient denies any other symptomatology. Patient has any recent fevers, shakes, chills, nausea, vomiting, diarrhea, dysuria, frequency, urgency, chest pain, shortness of breath. Patient reports that he is here because he just wishes to be heard which was something that his family does not do for him. Review of systems: As per history of present illness and below otherwise all systems reviewed and negative. Past medical history: As per history of present illness and as reviewed below otherwise noncontributory. Surgical history: As per history of present illness and as reviewed below otherwise noncontributory. Social history: No reported history of drug abuse. Family history: As per history of present illness and as reviewed below otherwise noncontributory. Physical exam: This patient was seen and evaluated during the 2019 SARS-CoV-2 novel coronavirus pandemic period. Community viral transmission is ongoing at time of this encounter and the emergency department is operating under pandemic response procedures. Constitutional: Patient is oriented to person, place, and time. Appears well- developed and well-nourished. No distress. HEENT: Moist mucous membranes Head: Normocephalic and atraumatic Eyes: Right eye exhibits no discharge. Left eye exhibits no discharge. No scleral icterus Neck: Normal range of motion. No tracheal deviation present. Cardiovascular: Normal rate and regular rhythm. Pulmonary: Effort normal, no respiratory distress. Abdominal: No distention Musculoskeletal: Normal range of motion Neurologic: Alert and oriented to person, place and time. Skin: [place], warm and dry. Psychiatric: Normal mood and affect. Behavior is normal. Judgment and thought content normal. Nursing note and vital signs have been reviewed Patient denies any SI/HI. Patient denies any auditory visual hallucinations. Diagnostics: [] Therapeutics: [] Assessment and plan: This is a 30-year-old gentleman who presents ER today secondary to depression and having fleeting thoughts of SI earlier today. Patient reports currently he is not having any suicidal thoughts but came here in order to have some to speak to. He reports that he walked from his apartment to the ER and during his walk he felt much better. Patient reports he does see a psychiatrist over at [facility]. We did speak to [facility] and spoke to one of the counselors, Mercy who spoke to him on the phone. She reports that at this time he is not suicidal and she was able to verbally contract for safety with him. She feels comfortable with the plan to discharge him to home does not feel inpatient treatment is needed at this time. I agree with her assessment as well. Patient will follow up with them tomorrow to speak to a counselor regarding the stressors of today. I have discussed with the patient and he is in total agreement with this plan and reports that if he starts having any further thoughts of harming self he will call the crisis center at [place] or return to the ED for further treatment. Patient reports he does not have any intention of harming himself nor has he had any intention of actually following through with his thoughts. Reassessment at the time of disposition demonstrates that the patient is in no acute distress. The patient has remained stable throughout the entire ED visit and is without objective evidence for acute process requiring urgent intervention or hospitalization. The patient is stable for discharge, counseling is provided as documented above, discussed symptomatic treatment and specific conditions for return. I have spoken with the patient/caregiver and discussed todays findings, in addition to providing specific details for the plan of care. Questions are answered and there is agreement with the plan. Definitive disposition and diagnosis as appropriate pending reevaluation and review of above. - Related Data Allergies Allergy/AdvReac Type Severity Reaction Status Date / Time No Known Allergies Allergy Verified 09/19/20 07:18 Home Meds: Home Meds Gabapentin [Neurontin] 300 mg PO TID 11/26/15 [History] LORazepam [Ativan] 0.5 mg PO TID 12/06/15 [History] FLUoxetine HCl [Prozac] 20 mg PO DAILY 01/30/16 [History] traZODone 1 tab PO DAILY 03/16/16 [History] ARIPiprazole [Abilify] 2 mg PO BEDTIME 05/07/20 [History] Dicyclomine [Bentyl] 10 mg PO TID 05/07/20 [History] Non-Formulary Medication [NF Drug] 1 each INH ASDIRECTED 05/07/20 [History] Omeprazole Magnesium [Prilosec Otc] 20 mg PO BID #30 tablet. 05/07/20 [Rx] Zolpidem [Ambien] 10 mg PO BEDTIME 05/07/20 [History] lisinopriL [Lisinopril] 10 mg PO DAILY 05/07/20 [History] ARIPiprazole [Abilify] 2 mg PO DAILY 09/17/20 [History] Dicyclomine [Bentyl] 10 mg PO TID 09/17/20 [History] FLUoxetine HCl [Prozac] 40 mg PO DAILY 09/17/20 [History] LORazepam [Lorazepam] 0.5 mg PO TID PRN 09/17/20 [History] Zolpidem Tartrate [Ambien] 10 mg PO BEDTIME 09/17/20 [History] metFORMIN [Glucophage] 1,000 mg PO BID 09/17/20 [History] Past Medical History HEENT History: Reports: None Cardiovascular History: Reports: Hypertension Respiratory History: Reports: None Gastrointestinal History: Reports: Irritable Bowel Syndrome Other Gastrointestinal History: " elevated liver enzymes" Genitourinary History: Reports: None Musculoskeletal History: Reports: None Neurological History: Reports: None Psychiatric History: Reports: Anxiety, Bipolar, Depression Other Psychiatric History: Cutting Endocrine/Metabolic History: Reports: Diabetes, Type II Other Endocrine/Metabolic History: short stature Hematologic History: Reports: None Immunologic History: Reports: None Oncologic (Cancer) History: Reports: None Dermatologic History: Reports: None - Infectious Disease History Infectious Disease History: Reports: Chicken Pox, None - Past Surgical History Head Surgeries/Procedures: Reports: None HEENT Surgical History: Reports: Myringotomy w Tube(s), Other (See Below) Other HEENT Surgeries/Procedures: bilateral ear tubes Cardiovascular Surgical History: Reports: None Respiratory Surgical History: Reports: None GI Surgical History: Reports: None Male Surgical History: Reports: None Endocrine Surgical History: Reports: None Neurological Surgical History: Reports: None Musculoskeletal Surgical History: Reports: None Dermatological Surgical History: Reports: None Social & Family History - Family History Family Medical History: No Pertinent Family History - Tobacco Use Tobacco Use Status *Q: Never Tobacco User Second Hand Smoke Exposure: No - Caffeine Use Caffeine Use: Reports: None - Recreational Drug Use Recreational Drug Use: No ED ROS GENERAL - Review of Systems Review Of Systems: See Below ED EXAM, GENERAL - Physical Exam Exam: See Below Course - Vital Signs Last Recorded V/S: Last Vital Signs Temp 98.4 F 12/27/20 22:16 Pulse 110 H 12/27/20 22:16 Resp 20 12/27/20 22:16 BP 148/95 H 12/27/20 22:16 Pulse Ox 97 12/27/20 22:16 Departure - Departure Time of Disposition: 23:00 Disposition: Home, Self-Care 01 Condition: Good Clinical Impression: Bipolar 1 disorder, depressed, Depression - Discharge Information Instructions: Major Depressive Disorder, Adult Referrals: PCP,None [Primary Care Provider] - Additional Instructions: You were seen and evaluated in the ER today secondary to fleeting thoughts of wanting to harm himself. At this time you are reporting that you have no desire to harm yourself and you feel comfortable with going home. You will be given the phone number for the [place] crisis center if you should have any further thoughts please give them a call or call 911 and have him transferred to the ER for us to further evaluate. We have spoken to Mercy at the [facility] and she will make sure that you are able to be seen by a counselor tomorrow to discuss the stressors of today. The following information is given to patients seen in the emergency department who are being discharged to home. This information is to outline your options for follow-up care. We provide all patients seen in our emergency department with a follow-up referral. The need for follow-up, as well as the timing and circumstances, are variable depending upon the specifics of your emergency department visit. If you don't have a primary care physician on staff, we will provide you with a referral. We always advise you to contact your personal physician following an emergency department visit to inform them of the circumstance of the visit and for follow-up with them and/or the need for any referrals to a consulting specialist. The emergency department will also refer you to a specialist when appropriate. This referral assures that you have the opportunity for follow-up care with a specialist. All of these measure are taken in an effort to provide you with optimal care, which includes your follow-up. Under all circumstances we always encourage you to contact your private physician who remains a resource for coordinating your care. When calling for follow-up care, please make the office aware that this follow-up is from your recent emergency room visit. If for any reason you are refused follow-up, please contact the [facility] Emergency Department at and asked to speak to the emergency department charge nurse. [facility] - Primary Care [address] [place] [id number] [address] Sepsis Event Note (ED) - Evaluation Sepsis Screening Result: No Definite Risk - Focused Exam Vital Signs: Vital Signs Temp Pulse Resp BP Pulse Ox 12/27/20 22:16 98.4 F 110 H 20 148/95 H 97
[2020-12-27 23:12] VITALS: BP 138/90; PULSE 98
== END 2020-12-27 23:12 | disposition home or self-care (01) ==
LOC: MW.ED 22:10
DX: F32.9 Major depressive disorder, single episode, unspecified (principal); E11.9 Type 2 diabetes mellitus without complications; Z79.84 Long term (current) use of oral hypoglycemic drugs; Z79.899 Other long term (current) drug therapy
CPT/HCPCS: 99283; 99284

== ENCOUNTER 2021-03-13 17:15 | Emergency (ER) | payer MEDICAID ==
--- NOTE | 2021-03-13 19:15 | EDM.PDOC ---
ED HPI GENERAL MEDICAL PROBLEM - General Chief Complaint: General Stated Complaint: FOOT BLISTERS Time Seen by Provider: 03/13/21 17:24 - History of Present Illness INITIAL COMMENTS - FREE TEXT/NARRATIVE: 30-year-old male who does not have transportation has a history of type 2 diabetes who is presenting with painful blisters to see his feet. He reports this is a common problem for him as he often spends a long time without taking his shoes and socks often has to walk everywhere. He is concerned because he does not want him to get infected. No fevers no other complaints at this time. The pain in his feet is moderate and worsens with ambulation. bilateral feet Pain Score (Numeric/FACES): 4 - Related Data Allergies Allergy/AdvReac Type Severity Reaction Status Date / Time No Known Allergies Allergy Verified 03/13/21 17:31 Home Meds: Home Meds Gabapentin [Neurontin] 300 mg PO TID 11/26/15 [History] LORazepam [Ativan] 0.5 mg PO TID 12/06/15 [History] FLUoxetine HCl [Prozac] 20 mg PO DAILY 01/30/16 [History] ARIPiprazole [Abilify] 2 mg PO BEDTIME 05/07/20 [History] Dicyclomine [Bentyl] 10 mg PO TID 05/07/20 [History] Non-Formulary Medication [NF Drug] 1 each INH ASDIRECTED 05/07/20 [History] Zolpidem [Ambien] 10 mg PO BEDTIME 05/07/20 [History] lisinopriL [Lisinopril] 10 mg PO DAILY 05/07/20 [History] ARIPiprazole [Abilify] 2 mg PO DAILY 09/17/20 [History] Dicyclomine [Bentyl] 10 mg PO TID 09/17/20 [History] FLUoxetine HCl [Prozac] 40 mg PO DAILY 09/17/20 [History] LORazepam [Lorazepam] 0.5 mg PO TID PRN 09/17/20 [History] Zolpidem Tartrate [Ambien] 10 mg PO BEDTIME 09/17/20 [History] metFORMIN [Glucophage] 1,000 mg PO BID 09/17/20 [History] Past Medical History HEENT History: Reports: None Cardiovascular History: Reports: Hypertension Respiratory History: Reports: None Gastrointestinal History: Reports: Irritable Bowel Syndrome Other Gastrointestinal History: " elevated liver enzymes" Genitourinary History: Reports: None Musculoskeletal History: Reports: None Neurological History: Reports: None Psychiatric History: Reports: Anxiety, Bipolar, Depression Other Psychiatric History: Cutting Endocrine/Metabolic History: Reports: Diabetes, Type II Other Endocrine/Metabolic History: short stature Hematologic History: Reports: None Immunologic History: Reports: None Oncologic (Cancer) History: Reports: None Dermatologic History: Reports: None - Infectious Disease History Infectious Disease History: Reports: Chicken Pox, None - Past Surgical History Head Surgeries/Procedures: Reports: None HEENT Surgical History: Reports: Myringotomy w Tube(s), Other (See Below) Other HEENT Surgeries/Procedures: bilateral ear tubes Cardiovascular Surgical History: Reports: None Respiratory Surgical History: Reports: None GI Surgical History: Reports: None Male Surgical History: Reports: None Endocrine Surgical History: Reports: None Neurological Surgical History: Reports: None Musculoskeletal Surgical History: Reports: None Dermatological Surgical History: Reports: None Social & Family History - Family History Family Medical History: No Pertinent Family History - Tobacco Use Tobacco Use Status *Q: Current Every Day Tobacco User Years of Tobacco use: 15 Packs/Tins Daily: 0.2 Second Hand Smoke Exposure: No - Caffeine Use Caffeine Use: Reports: None - Recreational Drug Use Recreational Drug Use: Yes Drug Use in Last 12 Months: Yes Recreational Drug Type: Reports: Marijuana/Hashish ED ROS GENERAL - Review of Systems Review Of Systems: See Below Free Text/Narrative/Comment: General: No fever. Skin: Per HPI Musculoskeletal: No myalgias/arthralgias. Neurologic: No headache. ED EXAM, GENERAL - Physical Exam Exam: See Below Free Text/Narrative:: General Appearance: No acute distress, appears comfortable Skin: Healthy appearing blisters on each foot one is on the head of the first metatarsal of the left foot the other is on the side of the right great toe they are not tense there is minimal fluid within them there really more of a callus at this point. No active drainage no surrounding erythema no exudate foot is warm and well perfused HEENT: Normocephalic/atraumatic, sclera anicteric, mucous membranes moist Neck: Normal range of motion Musculoskeletal: No edema or tenderness Neurologic: Awake, alert, no obvious deficits, moving all extremities Psychiatric: Appropriate, cooperative Course - Vital Signs Last Recorded V/S: Last Vital Signs Temp 98.2 F 03/13/21 18:57 Pulse 94 03/13/21 18:57 Resp 18 03/13/21 18:57 BP 123/78 03/13/21 18:57 Pulse Ox 96 03/13/21 18:57 Departure - Departure Time of Disposition: 19:14 Disposition: Home, Self-Care 01 Condition: Good Clinical Impression: Blister of foot without infection - Discharge Information *PRESCRIPTION DRUG MONITORING PROGRAM REVIEWED*: Not Applicable *COPY OF PRESCRIPTION DRUG MONITORING REPORT IN PATIENT TABATHA: Not Applicable Instructions: Blisters, Adult Referrals: Piedad Wall PA [Primary Care Provider] - Additional Instructions: It is important that at least a few times every day you find a place where you can sit and take your shoes and socks off for at least 15 to 30 minutes to let everything dry. Preventing your feet from getting damp will help minimize blister formation. If you develop worsening pain spreading redness or fever please see your doctor or return to the ER. The following information is given to patients seen in the emergency department who are being discharged to home. This information is to outline your options for follow-up care. We provide all patients seen in our emergency department with a follow-up referral. The need for follow-up, as well as the timing and circumstances, are variable depending upon the specifics of your emergency department visit. If you don't have a primary care physician on staff, we will provide you with a referral. We always advise you to contact your personal physician following an emergency department visit to inform them of the circumstance of the visit and for follow-up with them and/or the need for any referrals to a consulting specialist. The emergency department will also refer you to a specialist when appropriate. This referral assures that you have the opportunity for follow-up care with a specialist. All of these measure are taken in an effort to provide you with optimal care, which includes your follow-up. Under all circumstances we always encourage you to contact your private physician who remains a resource for coordinating your care. When calling for follow-up care, please make the office aware that this follow-up is from your recent emergency room visit. If for any reason you are refused follow-up, please contact the [facility] Emergency Department at and asked to speak to the emergency department charge nurse. Sepsis Event Note (ED) - Evaluation Sepsis Screening Result: No Definite Risk - Focused Exam Vital Signs: Vital Signs Temp Pulse Resp BP Pulse Ox 03/13/21 18:57 98.2 F 94 18 123/78 96 03/13/21 17:26 97.4 F 102 H 18 134/85 98 - Assessment/Plan Assessment:: 30-year-old male presenting with bilateral foot blisters due to excessive walking and wet socks. No sign of trench foot we do not have any moleskin available so they were dressed with Band-Aids. 2 sets of dry socks were provided for the patient. Wound care discussed and understood.
[2021-03-13 19:28] VITALS: BP 122/86; PULSE 95
== END 2021-03-13 19:26 | disposition home or self-care (01) ==
LOC: MW.ED 17:15
DX: S90.822A Blister (nonthermal), left foot, initial encounter (principal); S90.821A Blister (nonthermal), right foot, initial encounter; I10 Essential (primary) hypertension; E11.9 Type 2 diabetes mellitus without complications; Z72.0 Tobacco use; Z79.899 Other long term (current) drug therapy; X58.XXXA Exposure to other specified factors, initial encounter
CPT/HCPCS: 99282

== ENCOUNTER 2021-03-21 13:17 | Emergency (ER) | payer MEDICAID ==
--- NOTE | 2021-03-21 13:41 | EDM.PDOC ---
ED HPI GENERAL MEDICAL PROBLEM - General Chief Complaint: Lower Extremity Injury/Pain Stated Complaint: both feet are very painful Time Seen by Provider: 03/21/21 13:36 - History of Present Illness INITIAL COMMENTS - FREE TEXT/NARRATIVE: HISTORY AND PHYSICAL: History of present illness: This is a 30-year-old gentleman who presents to the ER today complaining of pain to both feet secondary to walking a lot. Patient reports that he was told by his doctor that he should walk a lot to help with weight loss. Patient reports that when he had blisters in the past he is come to the ED and he received the medical socks which assisted with his blisters. Patient reports that he does have a history of type 2 diabetes. Patient has any recent fevers, shakes, chills, nausea, vomiting, diarrhea, dysuria, frequency, urgency. Patient denies any other symptoms. Review of systems: As per history of present illness and below otherwise all systems reviewed and negative. Past medical history: As per history of present illness and as reviewed below otherwise noncontributory. Surgical history: As per history of present illness and as reviewed below otherwise noncontributory. Social history: No reported history of drug abuse. Family history: As per history of present illness and as reviewed below otherwise noncontributory. Physical exam: This patient was seen and evaluated during the 2019 SARS-CoV-2 novel coronavirus pandemic period. Community viral transmission is ongoing at time of this encounter and the emergency department is operating under pandemic response procedures. Constitutional: Patient is oriented to person, place, and time. Appears well- developed and well-nourished. No distress. HEENT: Moist mucous membranes Head: Normocephalic and atraumatic Eyes: Right eye exhibits no discharge. Left eye exhibits no discharge. No scleral icterus Neck: Normal range of motion. No tracheal deviation present. Cardiovascular: Normal rate and regular rhythm. Pulmonary: Effort normal, no respiratory distress. Abdominal: No distention Musculoskeletal: Normal range of motion Neurologic: Alert and oriented to person, place and time. Skin: [place], warm and dry. Psychiatric: Normal mood and affect. Behavior is normal. Judgment and thought content normal. Nursing note and vital signs have been reviewed Patient's ER physical exam is significant for 2 blisters noted on the plantar aspect of his left foot and one blister noted at the heel of his right foot. No evidence of cellulitis, erythema, drainage identified from the blisters. Diagnostics: [] Therapeutics: [] Assessment and plan: 30-year-old who presents ER today with blisters to his foot. Patient will be supplied hospital socks here in the ED and will be instructed to make sure that he always wears extra socks when he walks with his sneakers. No evidence of cellulitis. No indication for further ER evaluation at this time. Reassessment at the time of disposition demonstrates that the patient is in no acute distress. The patient has remained stable throughout the entire ED visit and is without objective evidence for acute process requiring urgent intervention or hospitalization. The patient is stable for discharge, counseling is provided as documented above, discussed symptomatic treatment and specific conditions for return. I have spoken with the patient/caregiver and discussed todays findings, in addition to providing specific details for the plan of care. Questions are answered and there is agreement with the plan. Definitive disposition and diagnosis as appropriate pending reevaluation and review of above. - Related Data Allergies Allergy/AdvReac Type Severity Reaction Status Date / Time No Known Allergies Allergy Verified 03/13/21 17:31 Home Meds: Home Meds Gabapentin [Neurontin] 300 mg PO TID 11/26/15 [History] LORazepam [Ativan] 0.5 mg PO TID 12/06/15 [History] FLUoxetine HCl [Prozac] 20 mg PO DAILY 01/30/16 [History] ARIPiprazole [Abilify] 2 mg PO BEDTIME 05/07/20 [History] Dicyclomine [Bentyl] 10 mg PO TID 05/07/20 [History] Non-Formulary Medication [NF Drug] 1 each INH ASDIRECTED 05/07/20 [History] Zolpidem [Ambien] 10 mg PO BEDTIME 05/07/20 [History] lisinopriL [Lisinopril] 10 mg PO DAILY 05/07/20 [History] ARIPiprazole [Abilify] 2 mg PO DAILY 09/17/20 [History] Dicyclomine [Bentyl] 10 mg PO TID 09/17/20 [History] FLUoxetine HCl [Prozac] 40 mg PO DAILY 09/17/20 [History] LORazepam [Lorazepam] 0.5 mg PO TID PRN 09/17/20 [History] Zolpidem Tartrate [Ambien] 10 mg PO BEDTIME 09/17/20 [History] metFORMIN [Glucophage] 1,000 mg PO BID 09/17/20 [History] Past Medical History HEENT History: Reports: None Cardiovascular History: Reports: Hypertension Respiratory History: Reports: None Gastrointestinal History: Reports: Irritable Bowel Syndrome Other Gastrointestinal History: " elevated liver enzymes" Genitourinary History: Reports: None Musculoskeletal History: Reports: None Neurological History: Reports: None Psychiatric History: Reports: Anxiety, Bipolar, Depression Other Psychiatric History: Cutting Endocrine/Metabolic History: Reports: Diabetes, Type II Other Endocrine/Metabolic History: short stature Hematologic History: Reports: None Immunologic History: Reports: None Oncologic (Cancer) History: Reports: None Dermatologic History: Reports: None - Infectious Disease History Infectious Disease History: Reports: Chicken Pox, None - Past Surgical History Head Surgeries/Procedures: Reports: None HEENT Surgical History: Reports: Myringotomy w Tube(s), Other (See Below) Other HEENT Surgeries/Procedures: bilateral ear tubes Cardiovascular Surgical History: Reports: None Respiratory Surgical History: Reports: None GI Surgical History: Reports: None Male Surgical History: Reports: None Endocrine Surgical History: Reports: None Neurological Surgical History: Reports: None Musculoskeletal Surgical History: Reports: None Dermatological Surgical History: Reports: None Social & Family History - Family History Family Medical History: No Pertinent Family History - Caffeine Use Caffeine Use: Reports: None Review of Systems - Review of Systems Review Of Systems: See Below ED EXAM, GENERAL - Physical Exam Exam: See Below Departure - Departure Time of Disposition: 13:39 Disposition: Home, Self-Care 01 Condition: Good Clinical Impression: Blister of foot without infection Qualifiers: Encounter type: initial encounter Laterality: unspecified laterality Qualified Code(s): S90.829A - Blister (nonthermal), unspecified foot, initial encounter - Discharge Information Instructions: Blisters, Adult Referrals: Piedad Wall PA [Primary Care Provider] - Additional Instructions: You were seen and evaluated in ER today secondary to blisters to your foot. We will give you hospital socks to help you with your blisters. Please make sure that you wear extra socks whenever you are walking and to make sure that your feet are dry and not rubbing up against her shoes. You may want to go to a sneaker store and get fitted for better fitting sneakers. The following information is given to patients seen in the emergency department who are being discharged to home. This information is to outline your options for follow-up care. We provide all patients seen in our emergency department wi th a follow-up referral. The need for follow-up, as well as the timing and circumstances, are variable depending upon the specifics of your emergency department visit. If you don't have a primary care physician on staff, we will provide you with a referral. We always advise you to contact your personal physician following an emergency department visit to inform them of the circumstance of the visit and for follow-up with them and/or the need for any referrals to a consulting specialist. The emergency department will also refer you to a specialist when appropriate. This referral assures that you have the opportunity for follow-up care with a specialist. All of these measure are taken in an effort to provide you with optimal care, which includes your follow-up. Under all circumstances we always encourage you to contact your private physician who remains a resource for coordinating your care. When calling for follow-up care, please make the office aware that this follow-up is from your recent emergency room visit. If for any reason you are refused follow-up, please contact the [facility] Emergency Department at and asked to speak to the emergency department charge nurse. Jessica Ab [facility] - Primary Care [address] [place] [id number] [address]
[2021-03-21 14:13] VITALS: BP 103/75; PULSE 100
== END 2021-03-21 13:49 | disposition home or self-care (01) ==
LOC: MW.ED 13:17
DX: S90.821A Blister (nonthermal), right foot, initial encounter (principal); S90.822A Blister (nonthermal), left foot, initial encounter; E11.9 Type 2 diabetes mellitus without complications; I10 Essential (primary) hypertension; Z79.84 Long term (current) use of oral hypoglycemic drugs; X58.XXXA Exposure to other specified factors, initial encounter; Y93.01 Activity, walking, marching and hiking
CPT/HCPCS: 99283

== ENCOUNTER 2021-05-05 01:13 | Emergency (ER) | payer MEDICAID ==
--- NOTE | 2021-05-05 01:37 | EDM.PDOC ---
ED HPI GENERAL MEDICAL PROBLEM - General Chief Complaint: Lower Extremity Injury/Pain Stated Complaint: PAIN AND SORES ON BOTH FEET Time Seen by Provider: 05/05/21 01:14 Source of Information: Reports: Patient History Limitations: Reports: No Limitations - History of Present Illness INITIAL COMMENTS - FREE TEXT/NARRATIVE: Patient is a 30-year-old male presents today for bilateral foot pain. Patient was seen for this in the past. Patient states he walks everywhere did not have a car and has blisters to the bottom of his feet. Patient states that he walked here and now has increased pain. Patient states took about hour to walk here. Denies any numbness to the feet no direct injuries to the feet denies any fever chills nausea vomiting or other complaints. Bilateral Foot Pain Score (Numeric/FACES): 7 - Related Data Allergies Allergy/AdvReac Type Severity Reaction Status Date / Time No Known Allergies Allergy Verified 05/05/21 01:22 Home Meds: Home Meds Gabapentin [Neurontin] 300 mg PO TID 11/26/15 [History] LORazepam [Ativan] 0.5 mg PO TID 12/06/15 [History] FLUoxetine HCl [Prozac] 20 mg PO DAILY 01/30/16 [History] ARIPiprazole [Abilify] 2 mg PO BEDTIME 05/07/20 [History] Dicyclomine [Bentyl] 10 mg PO TID 05/07/20 [History] Non-Formulary Medication [NF Drug] 1 each INH ASDIRECTED 05/07/20 [History] Zolpidem [Ambien] 10 mg PO BEDTIME 05/07/20 [History] lisinopriL [Lisinopril] 10 mg PO DAILY 05/07/20 [History] ARIPiprazole [Abilify] 2 mg PO DAILY 09/17/20 [History] Dicyclomine [Bentyl] 10 mg PO TID 09/17/20 [History] FLUoxetine HCl [Prozac] 40 mg PO DAILY 09/17/20 [History] LORazepam [Lorazepam] 0.5 mg PO TID PRN 09/17/20 [History] Zolpidem Tartrate [Ambien] 10 mg PO BEDTIME 09/17/20 [History] metFORMIN [Glucophage] 1,000 mg PO BID 02/07/21 [History] Past Medical History HEENT History: Reports: None Cardiovascular History: Reports: Hypertension Respiratory History: Reports: None Gastrointestinal History: Reports: Irritable Bowel Syndrome Other Gastrointestinal History: " elevated liver enzymes" Genitourinary History: Reports: None Musculoskeletal History: Reports: None Neurological History: Reports: None Psychiatric History: Reports: Anxiety, Bipolar, Depression Other Psychiatric History: Cutting Endocrine/Metabolic History: Reports: Diabetes, Type II Other Endocrine/Metabolic History: short stature Hematologic History: Reports: None Immunologic History: Reports: None Oncologic (Cancer) History: Reports: None Dermatologic History: Reports: None - Infectious Disease History Infectious Disease History: Reports: Chicken Pox, None - Past Surgical History Head Surgeries/Procedures: Reports: None HEENT Surgical History: Reports: Myringotomy w Tube(s), Other (See Below) Other HEENT Surgeries/Procedures: bilateral ear tubes Cardiovascular Surgical History: Reports: None Respiratory Surgical History: Reports: None GI Surgical History: Reports: None Male Surgical History: Reports: None Endocrine Surgical History: Reports: None Neurological Surgical History: Reports: None Musculoskeletal Surgical History: Reports: None Dermatological Surgical History: Reports: None Social & Family History - Family History Family Medical History: No Pertinent Family History - Caffeine Use Caffeine Use: Reports: Coffee - Recreational Drug Use Recreational Drug Type: Reports: Marijuana/Hashish Review of Systems - Review of Systems Review Of Systems: See Below Constitutional: Reports: No Symptoms Eyes: Reports: No Symptoms Ears: Reports: No Symptoms Nose: Reports: No Symptoms Mouth/Throat: Reports: No Symptoms Respiratory: Reports: No Symptoms Cardiovascular: Reports: No Symptoms GI/Abdominal: Reports: No Symptoms Genitourinary: Reports: No Symptoms Musculoskeletal: Reports: Foot Pain Skin: Reports: No Symptoms Neurological: Reports: No Symptoms Psychiatric: Reports: No Symptoms ED EXAM, GENERAL - Physical Exam Exam: See Below Exam Limited By: No Limitations General Appearance: Alert, WD/WN, No Apparent Distress Nose: Normal Inspection Throat/Mouth: Normal Inspection Head: Atraumatic, Normocephalic Neck: Normal Inspection Respiratory/Chest: No Respiratory Distress Peripheral Pulses: 2+: Dorsalis Pedis (L), Dorsalis Pedis (R) GI/Abdominal: Normal Bowel Sounds Extremities: Normal Inspection, Other (There is some skin breakdown to the heel of the left foot left likely from rubbing his shoe little bit of blisters on both big toes.) Neurological: Alert, Oriented, Normal Gait Course - Vital Signs Last Recorded V/S: Last Vital Signs Temp 97.8 F 05/05/21 01:23 Pulse 87 05/05/21 01:23 Resp 17 05/05/21 01:23 BP 141/83 H 05/05/21 01:23 Pulse Ox 96 05/05/21 01:23 Departure - Departure Time of Disposition: 01:44 Disposition: Home, Self-Care 01 Condition: Good Clinical Impression: Blister of foot - Discharge Information *PRESCRIPTION DRUG MONITORING PROGRAM REVIEWED*: Not Applicable *COPY OF PRESCRIPTION DRUG MONITORING REPORT IN PATIENT TABATHA: Not Applicable Instructions: Blisters, Adult Referrals: Piedad Wall PA [Primary Care Provider] - Forms: ED Department Discharge Additional Instructions: The following information is given to patients seen in the emergency department who are being discharged to home. This information is to outline your options for follow-up care. We provide all patients seen in our emergency department with a follow-up referral. The need for follow-up, as well as the timing and circumstances, are variable depending upon the specifics of your emergency department visit. If you don't have a primary care physician on staff, we will provide you with a referral. We always advise you to contact your personal physician following an emergency department visit to inform them of the circumstance of the visit and for follow-up with them and/or the need for any referrals to a consulting specialist. The emergency department will also refer you to a specialist when appropriate. This referral assures that you have the opportunity for follow-up care with a specialist. All of these measure are taken in an effort to provide you with optimal care, which includes your follow-up. Under all circumstances we always encourage you to contact your private physician who remains a resource for coordinating your care. When calling for follow-up care, please make the office aware that this follow-up is from your recent emergency room visit. If for any reason you are refused follow-up, please contact the [facility] Emergency Department at and asked to speak to the emergency department charge nurse. Please follow up with your primary care physician. If you do not have a primary care physician, see below: [facility] [address] [place] [phone] My [facility] [address] [place] [address] Dr Serge Lantig[facility] Office number [phone] You are seen today for pain to your feet. You state that you walk a lot and your pain increases with the increase walking. We gave you some hospital socks that should help out with some cushioning. We also recommend you try to get some shoe soles that can provide more cushion as well for your feet. Sepsis Event Note (ED) - Focused Exam Vital Signs: Vital Signs Temp Pulse Resp BP Pulse Ox 05/05/21 01:23 97.8 F 87 17 141/83 H 96 - Assessment/Plan Plan: Patient is a 30-year-old male presents today for pain to both feet. Painful to the soles of both his feet. This happens to him walking everywhere. He has been seen for this in the past. States he normally uses hospital socks to help out. Patient instructed to wear more padding on his feet when wearing certain shoes and also may be purchasing insoles to help out with this. Patient did not have a ride home we will have patient sit here until more light outside in warmer for patient can walk back home. Patient also be referred to podiatry.
[2021-05-05 05:17] VITALS: BP 138/85; PULSE 83
== END 2021-05-05 05:17 | disposition home or self-care (01) ==
LOC: MW.ED 01:13
DX: S90.822A Blister (nonthermal), left foot, initial encounter (principal); E11.9 Type 2 diabetes mellitus without complications; I10 Essential (primary) hypertension; Z79.899 Other long term (current) drug therapy; Z79.84 Long term (current) use of oral hypoglycemic drugs; X58.XXXA Exposure to other specified factors, initial encounter
CPT/HCPCS: 99283

== ENCOUNTER 2021-10-15 20:36 | Emergency (ER) | payer MEDICAID ==
[2021-10-16 00:30] LABS: BLOOD UREA NITROGEN,BUN 24 mg/dL (7.0-18.0); CARBON DIOXIDE,CO2 26.5 mmol/L (21.0-32.0); CHLORIDE,CL 101 mmol/L (98-107); GLUCOSE RANDOM 154 mg/dL (74-106); POTASSIUM,K 3.6 mmol/L (3.5-5.1); SODIUM,NA 137 mmol/L (136-148)
[2021-10-16] MEDS ORDERED: Azithromycin 250 MG Tab PO STA (00:44)
[2021-10-16] MEDS ORDERED: Iopamidol 755 MG/ML 500 ML Multipack Bottle IVPUSH STA (01:37)
[2021-10-16] MEDS ORDERED: Acetaminophen 500 MG Tab PO ONE (02:28)
[2021-10-16 02:44] VITALS: BP 119/73; PULSE 75
== END 2021-10-16 02:47 | disposition home or self-care (01) ==
LOC: MW.ED 20:36
DX: S09.90XA Unspecified injury of head, initial encounter (principal); S20.214A Contusion of middle front wall of thorax, initial encounter; I10 Essential (primary) hypertension; E11.9 Type 2 diabetes mellitus without complications; Z79.899 Other long term (current) drug therapy; W22.8XXA Striking against or struck by other objects, initial encounter
CPT/HCPCS: 36415; 70450; 71101; 74177; 80053; 82947; 83605; 83735; 85025; 85610; 85730; 93005; 99284; A9270; Q9967

== ENCOUNTER 2021-11-05 19:15 | Emergency (ER) | payer MEDICAID ==
[2021-11-05] MEDS ORDERED: Bacitracin Oint 1 GM U/D Packet TOP ONE (19:45)
[2021-11-05 20:22] VITALS: BP 130/68; PULSE 90
== END 2021-11-05 20:27 | disposition home or self-care (01) ==
LOC: MW.ED 19:15
DX: T69.029A Immersion foot, unspecified foot, initial encounter (principal); I10 Essential (primary) hypertension; E11.9 Type 2 diabetes mellitus without complications; Z79.84 Long term (current) use of oral hypoglycemic drugs; Z79.899 Other long term (current) drug therapy
CPT/HCPCS: 99282; 99283

== ENCOUNTER 2021-12-01 14:38 | Emergency (ER) | payer MEDICAID ==
[2021-12-01 14:57] VITALS: BP 184/86; PULSE 84
[2021-12-01 15:29] LABS: ACETAMINOPHEN <2.0 ug/mL; BLOOD UREA NITROGEN,BUN 16 mg/dL (7.0-18.0); CHLORIDE,CL 103 mmol/L (98-107); GLUCOSE RANDOM 126 mg/dL (74-106); POTASSIUM,K 3.3 mmol/L (3.5-5.1); SODIUM,NA 141 mmol/L (136-148)
== END 2021-12-01 18:18 | disposition home or self-care (01) ==
LOC: MW.ED 14:38
DX: F32.A Depression, unspecified (principal); E11.9 Type 2 diabetes mellitus without complications; I10 Essential (primary) hypertension; Z79.899 Other long term (current) drug therapy; Z79.84 Long term (current) use of oral hypoglycemic drugs
CPT/HCPCS: 36415; 80053; 80143; 80179; 80307; 83735; 85025; 99284; 99285-25

== ENCOUNTER 2021-12-01 23:31 | Emergency (ER) | payer MEDICAID ==
[2021-12-02] MEDS ORDERED: LORazepam 0.5 MG Tab PO STA (00:04)
[2021-12-02] MEDS ORDERED: Lisinopril 10 MG Tab PO STA (00:05)
[2021-12-02] MEDS ORDERED: diphenhydrAMINE 50 MG Cap PO ONE (01:17)
[2021-12-02 01:38] VITALS: BP 143/76; PULSE 79
== END 2021-12-02 01:25 | disposition home or self-care (01) ==
LOC: MW.ED 23:31
DX: F31.9 Bipolar disorder, unspecified (principal); F41.9 Anxiety disorder, unspecified; E11.9 Type 2 diabetes mellitus without complications; Z79.899 Other long term (current) drug therapy
CPT/HCPCS: 99283; A9270

== ENCOUNTER 2021-12-02 12:02 | Emergency (ER) | payer MEDICAID ==
[2021-12-02] MEDS ORDERED: ALPRAZolam 0.5 MG Tab PO STA (21:43)
[2021-12-02 23:37] VITALS: BP 117/67; PULSE 70
== END 2021-12-03 00:15 ==
LOC: MW.ED 12:02
DX: F31.0 Bipolar disorder, current episode hypomanic (principal); R45.851 Suicidal ideations; I10 Essential (primary) hypertension; E11.9 Type 2 diabetes mellitus without complications; E66.9 Obesity, unspecified; Z68.38 Body mass index [BMI] 38.0-38.9, adult; Z79.899 Other long term (current) drug therapy; Z79.84 Long term (current) use of oral hypoglycemic drugs; Z20.822 Contact with and (suspected) exposure to COVID-19
CPT/HCPCS: 80305; 87635; 99285; A9270; 99284; U0002

== ENCOUNTER 2021-12-17 08:48 | Emergency (ER) | payer MEDICAID ==
[2021-12-17] MEDS ORDERED: Ketorolac 30 MG/ML SDV IM ONE (09:21)
[2021-12-17 10:14] LABS: BLOOD UREA NITROGEN,BUN 41 mg/dL (7.0-18.0); CARBON DIOXIDE,CO2 21.3 mmol/L (21.0-32.0); CHLORIDE,CL 102 mmol/L (98-107); GLUCOSE RANDOM 104 mg/dL (74-106); POTASSIUM,K 4.1 mmol/L (3.5-5.1); SODIUM,NA 134 mmol/L (136-148)
[2021-12-17 10:37] VITALS: BP 120/67; PULSE 92
== END 2021-12-17 10:39 | disposition home or self-care (01) ==
LOC: MW.ED 08:48
DX: T69.022A Immersion foot, left foot, initial encounter (principal); T69.021A Immersion foot, right foot, initial encounter; L97.319 Non-pressure chronic ulcer of right ankle with unspecified severity; E11.9 Type 2 diabetes mellitus without complications; I10 Essential (primary) hypertension; E66.9 Obesity, unspecified; Z79.899 Other long term (current) drug therapy; Z79.84 Long term (current) use of oral hypoglycemic drugs; Z68.38 Body mass index [BMI] 38.0-38.9, adult
CPT/HCPCS: 36415; 73630; 80053; 83605; 85025; 85652; 86140; 96372; 99283; J1885

== ENCOUNTER 2021-12-17 17:01 | Emergency (ER) | payer MEDICAID ==
[2021-12-17 19:22] LABS: ACETAMINOPHEN <2.0 ug/mL
[2021-12-17 20:23] VITALS: BP 137/61; PULSE 88
== END 2021-12-17 20:36 ==
LOC: MW.ED 17:01
DX: F32.A Depression, unspecified (principal); R45.851 Suicidal ideations; I10 Essential (primary) hypertension; E11.9 Type 2 diabetes mellitus without complications; E66.9 Obesity, unspecified; Z68.30 Body mass index [BMI] 30.0-30.9, adult; Z20.822 Contact with and (suspected) exposure to COVID-19
CPT/HCPCS: 36415; 80143; 80179; 80305-QW; 80307; 81003; 84443; 99285-25; U0002

== ENCOUNTER 2022-01-08 20:48 | Emergency (ER) | payer MEDICAID ==
[2022-01-08] MEDS ORDERED: Sulfamethoxazole/Trimethoprim 800-160 MG Tab PO ONE (21:06)
[2022-01-08 21:30] VITALS: BP 103/75; PULSE 86
== END 2022-01-08 21:30 | disposition home or self-care (01) ==
LOC: MW.ED 20:48
DX: L03.116 Cellulitis of left lower limb (principal); I10 Essential (primary) hypertension; E11.9 Type 2 diabetes mellitus without complications; E66.9 Obesity, unspecified; F17.210 Nicotine dependence, cigarettes, uncomplicated; Z68.38 Body mass index [BMI] 38.0-38.9, adult; Z79.899 Other long term (current) drug therapy; Z79.84 Long term (current) use of oral hypoglycemic drugs
CPT/HCPCS: 99283; A9270-GY

== ENCOUNTER 2022-01-18 18:12 | Emergency (ER) | payer MEDICAID ==
[2022-01-18] MEDS ORDERED: Ketorolac 30 MG/ML SDV IM ONE (19:23)
[2022-01-18] MEDS ORDERED: Amoxicillin/Clavulanate K 875-125 MG Tab PO STA (19:23)
[2022-01-18 19:58] VITALS: BP 109/58; PULSE 86
== END 2022-01-18 19:45 | disposition home or self-care (01) ==
LOC: MW.ED 18:12
DX: K08.89 Other specified disorders of teeth and supporting structures (principal); I10 Essential (primary) hypertension; E11.9 Type 2 diabetes mellitus without complications; E66.9 Obesity, unspecified; Z68.30 Body mass index [BMI] 30.0-30.9, adult; Z79.899 Other long term (current) drug therapy; Z79.84 Long term (current) use of oral hypoglycemic drugs
CPT/HCPCS: 96372; 99282; A9270; J1885

== ENCOUNTER 2022-02-16 11:46 | Emergency (ER) | payer MEDICAID ==
[2022-02-16] MEDS ORDERED: Sodium Chloride 0.9% 2.5 ML Syringe FLUSH PRN (12:05)
[2022-02-16] MEDS ORDERED: Sodium Chloride 0.9% 10 ML Syringe FLUSH PRN (12:05)
[2022-02-16] MEDS ORDERED: Sodium Chloride 0.9% 1,000 ML IV ONE (12:07)
[2022-02-16] MEDS ORDERED: Ketorolac 30 MG/ML SDV IVPUSH ONE (12:07)
[2022-02-16 12:54] LABS: BLOOD UREA NITROGEN,BUN 12 mg/dL (7.0-18.0); CARBON DIOXIDE,CO2 25.3 mmol/L (21.0-32.0); CHLORIDE,CL 97 mmol/L (98-107); GLUCOSE RANDOM 192 mg/dL (74-106); POTASSIUM,K 4.1 mmol/L (3.5-5.1); SODIUM,NA 131 mmol/L (136-148)
[2022-02-16 12:57] LABS: ESTIMATED GFR 126 mL/min (>60)
[2022-02-16 16:13] VITALS: BP 117/85; PULSE 90
[2022-02-16] MEDS ORDERED: Iopamidol 755 MG/ML 500 ML Multipack Bottle IVPUSH STA (17:01)
== END 2022-02-16 16:23 | disposition home or self-care (01) ==
LOC: MW.ED 11:46
DX: L03.211 Cellulitis of face (principal); I10 Essential (primary) hypertension; E11.9 Type 2 diabetes mellitus without complications; E66.9 Obesity, unspecified; Z68.30 Body mass index [BMI] 30.0-30.9, adult
CPT/HCPCS: 36415; 70491; 80053; 85025; 96361; 96374; 99284; J1885; J3490; J7030; Q9967

== ENCOUNTER 2022-04-17 17:34 | Emergency (ER) | payer MEDICAID ==
[2022-04-17 23:29] VITALS: BP 110/70; PULSE 72
== END 2022-04-17 21:05 | disposition home or self-care (01) ==
LOC: MW.ED 17:34
DX: K62.5 Hemorrhage of anus and rectum (principal); L29.0 Pruritus ani; I10 Essential (primary) hypertension; E11.9 Type 2 diabetes mellitus without complications; E66.9 Obesity, unspecified; Z68.39 Body mass index [BMI] 39.0-39.9, adult; Z79.899 Other long term (current) drug therapy; Z79.84 Long term (current) use of oral hypoglycemic drugs
CPT/HCPCS: 99283

== ENCOUNTER 2022-12-16 17:49 | Emergency (ER) | payer MEDICAID ==
[2022-12-16 18:19] LABS: BASOPHILS PERCENT AUTO 0.4 % (0.0-1.5); EOSINOPHILS ABSOLUTE AUTO 0.2 K/uL (0.0-0.7); HEMATOCRIT 49.8 % (38.0-50.0); HEMOGLOBIN 17.2 g/dL (13.0-17.0); LYMPHOCYTES ABSOLUTE AUTO 4.9 K/uL (0.6-2.4); LYMPHOCYTES PERCENT AUTO 43.4 % (16.0-40.0); MEAN CORPUSCULAR HEMOGLOBIN 29.7 pg (27.0-32.0); MEAN CORPUSCULAR HGB CONC 34.5 g/dL (31.0-37.0); MONOCYTES PERCENT AUTO 8.9 % (0.0-15.0); NEUTROPHILS ABSOLUTE AUTO 5.1 K/uL (1.4-5.7); NEUTROPHILS PERCENT AUTO 45.3 % (48.0-80.0); NRBC ABSOLUTE 0 K/uL; PLATELET COUNT,PLT 267 K/uL (150-400); RED BLOOD CELL COUNT 5.79 M/uL (4.50-5.90); WHITE BLOOD CELL COUNT,WBC 11.21 K/uL (4.0-11.0)
[2022-12-16] MEDS ORDERED: LORazepam 1 MG Tab PO ONE (18:48)
[2022-12-16 18:54] LABS: A/G RATIO 0.9 (0.9-1.6); ACETAMINOPHEN <2.0 ug/mL; ALANINE AMINOTRANSFERASE,ALT 86 IU/L (14-63); ALBUMIN 4.1 g/dL (3.4-5.0); ALKALINE PHOSPHATASE 87 U/L (46-116); ASPARTATE AMNIOTRANSFERASE,AST 32 IU/L (15-37); BILIRUBIN TOTAL 0.3 mg/dL (0.2-1.0); BLOOD UREA NITROGEN,BUN 12 mg/dL (7.0-18.0); CALCIUM 9.6 mg/dL (8.5-10.1); CARBON DIOXIDE,CO2 24.9 mmol/L (21.0-32.0); CHLORIDE,CL 100 mmol/L (98-107); CREATININE 1.1 mg/dL (0.8-1.3); EST CRCL DRUG DOSING (CG) 67.55 mL/min; GLUCOSE RANDOM 266 mg/dL (74-106); MAGNESIUM 2.5 mg/dL (1.8-2.4); POTASSIUM,K 4.3 mmol/L (3.5-5.1); PROTEIN TOTAL,TP 8.7 g/dL (6.4-8.2); SALICYLATE 1.7 mg/dL (0.0-20.0); SODIUM,NA 138 mmol/L (136-148); TSH ULTRASENSITIVE 1.86 uIU/mL (0.36-3.74)
[2022-12-16 18:55] LABS: ESTIMATED GFR 91 mL/min (>60); ETHANOL BLOOD MEDICAL < 3.0 mg/dL
[2022-12-16 19:04] LABS: APPEARANCE,URINE CLEAR; BILIRUBIN,URINE NEGATIVE (NEGATIVE); COLOR,URINE YELLOW; GLUCOSE,URINE >=1000 mg/dL (NEGATIVE); KETONES,URINE NEGATIVE (NEGATIVE); LEUKOCYTE ESTERASE,URINE NEGATIVE (NEGATIVE); NITRITE,URINE NEGATIVE (NEGATIVE); OCCULT BLOOD,URINE NEGATIVE (NEGATIVE); PROTEIN,URINE NEGATIVE (NEGATIVE); UROBILINOGEN,URINE 0.2 EU/dL (<2.0)
[2022-12-16 19:18] LABS: BACTERIA,URINE NOT SEEN (NEGATIVE); EPITHELIAL CELLS,URINE RARE (NONE-FEW); RBC,URINE 0-2 (0-2/HPF); WBC,URINE 0-1 (0-5/HPF)
[2022-12-16 19:19] LABS: AMPHETAMINES SCREEN, URINE PRESUMPTIVE POSITIVE (CUTOFF=500); BARBITURATE SCREEN,URINE NEGATIVE (CUTOFF=200); BENZODIAZEPINES SCREEN,URINE PRESUMPTIVE POSITIVE (CUTOFF=150); BUPRENORPHINE SCREEN,URINE NEGATIVE (CUTOFF=10); METHADONE SCREEN, URINE NEGATIVE (CUTOFF=200); METHAMPHETAMINES SCREEN, URINE PRESUMPTIVE POSITIVE (CUTOFF=500); OXYCODONE SCREEN,URINE NEGATIVE (CUT0FF=100); PCP SCREEN,URINE NEGATIVE (CUTOFF=25); PROPOXYPHENE SCREEN,URINE NEGATIVE (CUTOFF=300); THC SCREEN,URINE 20 NG/ML PRESUMPTIVE POSITIVE (CUTOFF=50)
[2022-12-17 00:18] VITALS: BP 125/84; PULSE 90
== END 2022-12-16 21:47 | disposition home or self-care (01) ==
LOC: MW.ED 17:49
DX: F32.9 Major depressive disorder, single episode, unspecified (principal); I10 Essential (primary) hypertension; E11.9 Type 2 diabetes mellitus without complications; E66.9 Obesity, unspecified; Z68.41 Body mass index [BMI] 40.0-44.9, adult; Z79.84 Long term (current) use of oral hypoglycemic drugs; Z79.899 Other long term (current) drug therapy
CPT/HCPCS: 36415; 80053; 80143; 80179; 80305; 80307; 81001; 82947; 83735; 84443; 85025; 93005; 99285; A9270; 93010; 99284

== ENCOUNTER 2024-08-15 07:27 | Emergency (ER) | payer MEDICAID ==
[2024-08-15 07:49] VITALS: BP 133/82
[2024-08-15 08:33] VITALS: PULSE 107
== END 2024-08-15 08:33 | disposition home or self-care (01) ==
LOC: MW.ED 07:27
DX: B35.3 Tinea pedis (principal); I10 Essential (primary) hypertension; E11.9 Type 2 diabetes mellitus without complications; F17.210 Nicotine dependence, cigarettes, uncomplicated; Z79.899 Other long term (current) drug therapy
CPT/HCPCS: 99283

== ENCOUNTER 2024-08-23 05:29 | Emergency (ER) | payer MEDICAID ==
[2024-08-23 06:10] VITALS: BP 128/51; PULSE 72
== END 2024-08-23 06:09 | disposition home or self-care (01) ==
LOC: MW.ED 05:29
DX: J06.9 Acute upper respiratory infection, unspecified (principal); I10 Essential (primary) hypertension; E11.9 Type 2 diabetes mellitus without complications; F17.210 Nicotine dependence, cigarettes, uncomplicated; Z79.899 Other long term (current) drug therapy
CPT/HCPCS: 99282; 99283

== ENCOUNTER 2024-10-13 19:51 | Emergency (ER) | payer MEDICAID ==
[2024-10-13] MEDS: Lidocaine 5% Oint 35.44 GM Tube TOP STA (21:07)
[2024-10-13 21:22] VITALS: BP 120/90; PULSE 82
== END 2024-10-13 21:20 | disposition home or self-care (01) ==
LOC: MW.ED 19:51
DX: R20.2 Paresthesia of skin (principal); R20.0 Anesthesia of skin; E11.9 Type 2 diabetes mellitus without complications; I10 Essential (primary) hypertension; F17.210 Nicotine dependence, cigarettes, uncomplicated; Z75.8 Other problems related to medical facilities and other health care; Z79.899 Other long term (current) drug therapy
CPT/HCPCS: 82947; 99284; A9270; 99283

== ENCOUNTER 2024-10-31 05:05 | Emergency (ER) | payer MEDICAID ==
[2024-10-31 05:25] VITALS: BP 115/79; PULSE 106
== END 2024-10-31 06:23 | disposition home or self-care (01) ==
LOC: MW.ED 05:05
DX: L84 Corns and callosities (principal); I10 Essential (primary) hypertension; E11.9 Type 2 diabetes mellitus without complications; F17.210 Nicotine dependence, cigarettes, uncomplicated; Z79.899 Other long term (current) drug therapy
CPT/HCPCS: 73620-26-RT; 73620-RT; 99283

== ENCOUNTER 2024-11-07 02:20 | Emergency (ER) | payer MEDICAID ==
[2024-11-07 02:33] VITALS: BP 150/92; PULSE 101
[2024-11-07] MEDS: Ketorolac 30 MG/ML SDV IM ONE (02:49)
== END 2024-11-07 03:12 | disposition left against medical advice (07) ==
LOC: MW.ED 02:20
DX: F32.A Depression, unspecified (principal); G89.29 Other chronic pain; M79.605 Pain in left leg; M79.604 Pain in right leg; M79.641 Pain in right hand; M79.642 Pain in left hand; I10 Essential (primary) hypertension; E11.9 Type 2 diabetes mellitus without complications; F17.210 Nicotine dependence, cigarettes, uncomplicated; Z79.899 Other long term (current) drug therapy
CPT/HCPCS: 96372; 99284; J1885; 99283

== ENCOUNTER 2024-11-07 07:42 | Emergency (ER) | payer MEDICAID ==
[2024-11-07 08:25] LABS: BASOPHILS ABSOLUTE AUTO 0.06 K/uL (0.00-0.20); BASOPHILS PERCENT AUTO 0.6 % (0.0-1.0); EOSINOPHILS ABSOLUTE AUTO 0.32 K/uL (0.00-0.45); HEMATOCRIT 41.2 % (42.0-52.0); HEMOGLOBIN 14.5 g/dL (14.0-18.0); IMMATURE GRAN ABSOLUTE AUTO 0.06 K/uL (0.00-0.05); IMMATURE GRAN PERCENT AUTO 0.6 % (0.0-0.4); LYMPHOCYTES ABSOLUTE AUTO 3.33 K/uL (1.00-4.80); LYMPHOCYTES PERCENT AUTO 31.5 % (24.0-44.0); MEAN CORPUSCULAR HEMOGLOBIN 31.9 pg (28.0-32.0); MEAN CORPUSCULAR HGB CONC 35.2 g/dL (32.0-36.0); MEAN CORPUSCULAR VOLUME 90.5 fL (83.0-99.0); MEAN PLATELET VOLUME 10.3 fL (9.4-12.4); MONOCYTES ABSOLUTE AUTO 0.93 K/uL (0.00-0.80); MONOCYTES PERCENT AUTO 8.8 % (0.0-8.0); NEUTROPHILS ABSOLUTE AUTO 5.88 K/uL (1.80-7.70); NEUTROPHILS PERCENT AUTO 55.5 % (41.0-71.0); PLATELET COUNT,PLT 279 K/uL (150-400); RED BLOOD CELL COUNT 4.55 M/uL (4.52-5.90); WHITE BLOOD CELL COUNT,WBC 10.58 K/uL (3.9-11.3)
[2024-11-07 08:53] LABS: APPEARANCE,URINE CLEAR; BILIRUBIN,URINE NEGATIVE (NEGATIVE); COLOR,URINE YELLOW; GLUCOSE,URINE NEGATIVE (NEGATIVE); KETONES,URINE TRACE mg/dL (NEGATIVE); LEUKOCYTE ESTERASE,URINE NEGATIVE (NEGATIVE); NITRITE,URINE NEGATIVE (NEGATIVE); OCCULT BLOOD,URINE NEGATIVE (NEGATIVE); PROTEIN,URINE TRACE mg/dL (NEGATIVE); UROBILINOGEN,URINE 0.2 EU/dL (<2.0)
[2024-11-07 08:55] LABS: ACETAMINOPHEN < 2.0 ug/mL; ALANINE AMINOTRANSFERASE,ALT 48 IU/L (14-63); ALBUMIN 3.6 g/dL (3.4-5.0); ALKALINE PHOSPHATASE 105 U/L (46-116); ASPARTATE AMNIOTRANSFERASE,AST 41 IU/L (15-37); BILIRUBIN DIRECT <0.05 mg/dL (0.0-0.5); BILIRUBIN TOTAL 0.2 mg/dL (0.2-1.0); BLOOD UREA NITROGEN,BUN 19 mg/dL (7.0-18.0); CALCIUM 8.6 mg/dL (8.5-10.1); CARBON DIOXIDE,CO2 24.2 mmol/L (21.0-32.0); CHLORIDE,CL 103 mmol/L (98-107); CREATININE 0.9 mg/dL (0.8-1.3); EST CRCL DRUG DOSING (CG) 81.02 mL/min; ESTIMATED GFR 114 mL/min (>60); ETHANOL BLOOD MEDICAL < 3.0 mg/dL; GLUCOSE RANDOM 176 mg/dL (74-106); POTASSIUM,K 3.8 mmol/L (3.5-5.1); PROTEIN TOTAL,TP 7.1 g/dL (6.4-8.2); SALICYLATE 1.8 mg/dL (0.0-20.0); SODIUM,NA 139 mmol/L (136-148); TSH ULTRASENSITIVE 1.46 uIU/mL (0.36-3.74)
[2024-11-07 09:02] LABS: AMPHETAMINES SCREEN, URINE PRESUMPTIVE POSITIVE (CUTOFF=500); BARBITURATE SCREEN,URINE NEGATIVE (CUTOFF=200); BENZODIAZEPINES SCREEN,URINE PRESUMPTIVE POSITIVE (CUTOFF=150); BUPRENORPHINE SCREEN,URINE NEGATIVE (CUTOFF=10); METHADONE SCREEN, URINE NEGATIVE (CUTOFF=200); METHAMPHETAMINES SCREEN, URINE PRESUMPTIVE POSITIVE (CUTOFF=500); OXYCODONE SCREEN,URINE NEGATIVE (CUT0FF=100); PCP SCREEN,URINE NEGATIVE (CUTOFF=25); THC SCREEN,URINE 20 NG/ML PRESUMPTIVE POSITIVE (CUTOFF=50)
[2024-11-07 09:03] LABS: RBC,URINE 0-1 (0-2/HPF)
[2024-11-07 09:04] LABS: BACTERIA,URINE OCCASIONAL (NEGATIVE); EPITHELIAL CELLS,URINE FEW (NONE-FEW); MUCUS,URINE MODERATE (NONE-MOD)
[2024-11-07 09:05] LABS: LIPASE 472 U/L (16-77)
[2024-11-07 12:00] VITALS: BP 139/77; PULSE 90
== END 2024-11-07 11:59 ==
LOC: MW.ED 07:42
DX: R45.851 Suicidal ideations (principal); I10 Essential (primary) hypertension; E11.9 Type 2 diabetes mellitus without complications; Z75.8 Other problems related to medical facilities and other health care; Z79.899 Other long term (current) drug therapy; Z21 Asymptomatic human immunodeficiency virus [HIV] infection status
CPT/HCPCS: 36415; 80053; 80143; 80179; 80305; 80307; 81001; 82248; 83690; 84443; 84484; 85025; 87428-QW; 93005; 99285

== ENCOUNTER 2024-11-23 19:10 | Emergency (ER) | payer MEDICAID ==
[2024-11-23] MEDS: Ketorolac 30 MG/ML SDV IM ONE (19:56)
[2024-11-23 20:12] VITALS: BP 140/72; PULSE 90
== END 2024-11-23 20:03 | disposition home or self-care (01) ==
LOC: MW.ED 19:10
DX: S99.911A Unspecified injury of right ankle, initial encounter (principal); I10 Essential (primary) hypertension; E11.9 Type 2 diabetes mellitus without complications; F17.210 Nicotine dependence, cigarettes, uncomplicated; Z75.8 Other problems related to medical facilities and other health care; Z79.899 Other long term (current) drug therapy; X58.XXXA Exposure to other specified factors, initial encounter; Y93.89 Activity, other specified
CPT/HCPCS: 73590; 73610; 73620; 96372; 99283; J1885

== ENCOUNTER 2024-12-15 16:43 | Emergency (ER) | payer MEDICAID ==
[2024-12-15 17:26] VITALS: BP 138/81; PULSE 100
[2024-12-15] MEDS: Cephalexin 500 MG Cap PO ONE (17:36)
[2024-12-15] MEDS: Diphtheria,Pertussis(Acell),Tetanus Vaccine 0.5 ML Syringe IM ONE (17:37)
== END 2024-12-15 17:44 | disposition home or self-care (01) ==
LOC: MW.ED 16:43
DX: T69.021A Immersion foot, right foot, initial encounter (principal); T69.022A Immersion foot, left foot, initial encounter; I10 Essential (primary) hypertension; E11.9 Type 2 diabetes mellitus without complications; Z23 Encounter for immunization; Z76.5 Malingerer [conscious simulation]; Z75.3 Unavailability and inaccessibility of health-care facilities; Z79.899 Other long term (current) drug therapy; X31.XXXA Exposure to excessive natural cold, initial encounter; Y93.01 Activity, walking, marching and hiking
CPT/HCPCS: 90471; 90715; 99283; A9270

== ENCOUNTER 2024-12-27 00:36 | Emergency (ER) | payer MEDICAID ==
[2024-12-27 00:43] VITALS: BP 135/82; PULSE 99
[2024-12-27] MEDS: Ondansetron 4 MG Tab.DIS PO ONE (00:52)
[2024-12-27] MEDS: Nicotine 21 MG/24 Hr Patch TRDERM ONE (01:36)
[2024-12-27 01:43] LABS: A/G RATIO 1.1 (0.9-1.6); ALANINE AMINOTRANSFERASE,ALT 68 IU/L (14-63); ALBUMIN 3.8 g/dL (3.4-5.0); ALKALINE PHOSPHATASE 73 U/L (46-116); ASPARTATE AMNIOTRANSFERASE,AST 39 IU/L (15-37); BILIRUBIN TOTAL 0.2 mg/dL (0.2-1.0); BLOOD UREA NITROGEN,BUN 25 mg/dL (7.0-18.0); CALCIUM 8.4 mg/dL (8.5-10.1); CARBON DIOXIDE,CO2 21.5 mmol/L (21.0-32.0); CHLORIDE,CL 107 mmol/L (98-107); CREATININE 1.1 mg/dL (0.8-1.3); GLUCOSE RANDOM 74 mg/dL (74-106); POTASSIUM,K 3.7 mmol/L (3.5-5.1); PROTEIN TOTAL,TP 7.3 g/dL (6.4-8.2); SODIUM,NA 142 mmol/L (136-148)
[2024-12-27 01:44] LABS: ESTIMATED GFR 90 mL/min (>60); ETHANOL BLOOD MEDICAL < 3.0 mg/dL
== END 2024-12-27 03:16 | disposition left against medical advice (07) ==
LOC: MW.ED 00:36
DX: T14.91XA Suicide attempt, initial encounter (principal); E11.9 Type 2 diabetes mellitus without complications; I10 Essential (primary) hypertension; Z76.5 Malingerer [conscious simulation]; Z79.899 Other long term (current) drug therapy
CPT/HCPCS: 36415; 80053; 80143; 80307; 93005; 99285; A9270; 99283

== ENCOUNTER 2024-12-29 09:47 | Emergency (ER) | payer MEDICAID ==
[2024-12-29 10:21] LABS: AMPHETAMINES SCREEN, URINE PRESUMPTIVE POSITIVE (CUTOFF=500); BARBITURATE SCREEN,URINE NEGATIVE (CUTOFF=200); BENZODIAZEPINES SCREEN,URINE PRESUMPTIVE POSITIVE (CUTOFF=150); BUPRENORPHINE SCREEN,URINE NEGATIVE (CUTOFF=10); METHADONE SCREEN, URINE NEGATIVE (CUTOFF=200); METHAMPHETAMINES SCREEN, URINE PRESUMPTIVE POSITIVE (CUTOFF=500); OXYCODONE SCREEN,URINE NEGATIVE (CUT0FF=100); PCP SCREEN,URINE NEGATIVE (CUTOFF=25); THC SCREEN,URINE 20 NG/ML PRESUMPTIVE POSITIVE (CUTOFF=50)
[2024-12-29 11:13] LABS: BASOPHILS ABSOLUTE AUTO 0.05 K/uL (0.00-0.20); BASOPHILS PERCENT AUTO 0.5 % (0.0-1.0); EOSINOPHILS ABSOLUTE AUTO 0.09 K/uL (0.00-0.45); EOSINOPHILS PERCENT AUTO 0.9 % (0.0-6.0); HEMATOCRIT 48.9 % (42.0-52.0); HEMOGLOBIN 16.4 g/dL (14.0-18.0); IMMATURE GRAN ABSOLUTE AUTO 0.02 K/uL (0.00-0.05); IMMATURE GRAN PERCENT AUTO 0.2 % (0.0-0.4); LYMPHOCYTES ABSOLUTE AUTO 3.52 K/uL (1.00-4.80); LYMPHOCYTES PERCENT AUTO 34.6 % (24.0-44.0); MEAN CORPUSCULAR HGB CONC 33.5 g/dL (32.0-36.0); MEAN CORPUSCULAR VOLUME 89.4 fL (83.0-99.0); MONOCYTES ABSOLUTE AUTO 0.92 K/uL (0.00-0.80); MONOCYTES PERCENT AUTO 9.1 % (0.0-8.0); NEUTROPHILS ABSOLUTE AUTO 5.56 K/uL (1.80-7.70); NEUTROPHILS PERCENT AUTO 54.7 % (41.0-71.0); PLATELET COUNT,PLT 339 K/uL (150-400); RED BLOOD CELL COUNT 5.47 M/uL (4.52-5.90); WHITE BLOOD CELL COUNT,WBC 10.16 K/uL (3.9-11.3)
[2024-12-29 11:44] LABS: A/G RATIO 1.1 (0.9-1.6); ACETAMINOPHEN <2.0 ug/mL; ALANINE AMINOTRANSFERASE,ALT 66 IU/L (14-63); ALBUMIN 4.5 g/dL (3.4-5.0); ALKALINE PHOSPHATASE 86 U/L (46-116); ASPARTATE AMNIOTRANSFERASE,AST 51 IU/L (15-37); BILIRUBIN TOTAL 0.6 mg/dL (0.2-1.0); BLOOD UREA NITROGEN,BUN 33 mg/dL (7.0-18.0); CALCIUM 9.9 mg/dL (8.5-10.1); CARBON DIOXIDE,CO2 26.1 mmol/L (21.0-32.0); CHLORIDE,CL 102 mmol/L (98-107); CREATININE 1.1 mg/dL (0.8-1.3); EST CRCL DRUG DOSING (CG) 66.29 mL/min; ETHANOL BLOOD MEDICAL <3 mg/dL; GLUCOSE RANDOM 140 mg/dL (74-106); MAGNESIUM 2.1 mg/dL (1.8-2.4); POTASSIUM,K 4.4 mmol/L (3.5-5.1); PROTEIN TOTAL,TP 8.6 g/dL (6.4-8.2); SALICYLATE 3.1 mg/dL (0.0-20.0); SODIUM,NA 138 mmol/L (136-148); TSH ULTRASENSITIVE 1.23 uIU/mL (0.36-3.74)
[2024-12-29 11:45] LABS: ESTIMATED GFR 90 mL/min (>60)
[2024-12-29 12:15] LABS: APPEARANCE,URINE CLEAR; BILIRUBIN,URINE NEGATIVE (NEGATIVE); COLOR,URINE YELLOW; GLUCOSE,URINE >=1000 mg/dL (NEGATIVE); KETONES,URINE 15 mg/dL (NEGATIVE); LEUKOCYTE ESTERASE,URINE NEGATIVE (NEGATIVE); NITRITE,URINE NEGATIVE (NEGATIVE); OCCULT BLOOD,URINE NEGATIVE (NEGATIVE); PH,URINE 5.5 (5.0-8.0); PROTEIN,URINE NEGATIVE (NEGATIVE); UROBILINOGEN,URINE 0.2 EU/dL (<2.0)
[2024-12-29 13:05] VITALS: BP 140/92; PULSE 95
== END 2024-12-29 14:41 ==
LOC: MW.ED 09:47
DX: R45.851 Suicidal ideations (principal); F19.10 Other psychoactive substance abuse, uncomplicated; Z75.3 Unavailability and inaccessibility of health-care facilities; I10 Essential (primary) hypertension; E11.9 Type 2 diabetes mellitus without complications; Z79.899 Other long term (current) drug therapy
CPT/HCPCS: 36415; 80053; 80143; 80179; 80305; 80307; 81003; 83735; 84443; 85025; 93005; 99285

== ENCOUNTER 2025-01-05 19:24 | Emergency (ER) | payer MEDICAID ==
[2025-01-05] MEDS: cefTRIAXone 1 GM in Lidocaine 1% 2.1 ML IM ONE (20:21)
[2025-01-05] MEDS: Albuterol 0.083% 2.5 MG/3 ML Neb Soln NEB ONE (20:23)
[2025-01-05 21:41] VITALS: BP 105/55; PULSE 90
== END 2025-01-05 21:39 | disposition home or self-care (01) ==
LOC: MW.ED 19:24
DX: J40 Bronchitis, not specified as acute or chronic (principal); J02.9 Acute pharyngitis, unspecified; I10 Essential (primary) hypertension; E11.9 Type 2 diabetes mellitus without complications; Z79.899 Other long term (current) drug therapy
CPT/HCPCS: 71046; 87426; 87651; 96372; 99285; J0696; J1100; J2003; J7613; A9270-GY

== ENCOUNTER 2025-01-17 02:32 | Emergency (ER) | payer MEDICAID ==
[2025-01-17] MEDS: Ketorolac 30 MG/ML SDV IM ONE (02:55)
[2025-01-17] MEDS: Benzonatate 100 MG Cap PO ONE (02:56)
[2025-01-17] MEDS: Albuterol/Ipratropium 3.0-0.5 MG/3 ML Neb Soln NEB ONE (02:56)
[2025-01-17 03:38] VITALS: BP 167/92; PULSE 110
== END 2025-01-17 03:38 | disposition home or self-care (01) ==
LOC: MW.ED 02:32
DX: R06.2 Wheezing (principal); R05.9 Cough, unspecified; I10 Essential (primary) hypertension; E11.9 Type 2 diabetes mellitus without complications; Z79.899 Other long term (current) drug therapy
CPT/HCPCS: 71046; 96372; 99285; A9270; J1885; J7620; 99283

== ENCOUNTER 2025-01-18 00:12 | Emergency (ER) | payer MEDICAID ==
[2025-01-18 00:18] VITALS: BP 134/82; PULSE 96
[2025-01-18] MEDS: Acetaminophen 325 MG Tab PO ONE (00:33)
[2025-01-18] MEDS: Ketorolac 30 MG/ML SDV IM ONE (00:33)
== END 2025-01-18 00:51 | disposition home or self-care (01) ==
LOC: MW.ED 00:12
DX: M79.671 Pain in right foot (principal); M79.672 Pain in left foot; I10 Essential (primary) hypertension; E11.9 Type 2 diabetes mellitus without complications; Z79.899 Other long term (current) drug therapy; Z79.51 Long term (current) use of inhaled steroids
CPT/HCPCS: 96372; 99283; A9270; J1885

== ENCOUNTER 2025-01-24 16:29 | Emergency (ER) | payer MEDICAID ==
[2025-01-24 16:50] VITALS: BP 126/66; PULSE 115
[2025-01-24] MEDS: Acetaminophen 500 MG Tab PO ONE (17:04)
== END 2025-01-24 17:52 | disposition home or self-care (01) ==
LOC: MW.ED 16:29
DX: S09.90XA Unspecified injury of head, initial encounter (principal); Z75.8 Other problems related to medical facilities and other health care; I10 Essential (primary) hypertension; E11.9 Type 2 diabetes mellitus without complications; Z79.899 Other long term (current) drug therapy; Y04.8XXA Assault by other bodily force, initial encounter
CPT/HCPCS: 70450; 70486; 99284; A9270; 99283

== ENCOUNTER 2025-01-25 03:26 | Emergency (ER) | payer MEDICAID ==
[2025-01-25] MEDS: Ketorolac 30 MG/ML SDV IVPUSH ONE (03:51)
[2025-01-25 03:53] LABS: BASOPHILS ABSOLUTE AUTO 0.04 K/uL (0.00-0.20); BASOPHILS PERCENT AUTO 0.6 % (0.0-1.0); EOSINOPHILS PERCENT AUTO 2.9 % (0.0-6.0); HEMATOCRIT 40.8 % (42.0-52.0); HEMOGLOBIN 13.6 g/dL (14.0-18.0); IMMATURE GRAN ABSOLUTE AUTO 0.03 K/uL (0.00-0.05); IMMATURE GRAN PERCENT AUTO 0.4 % (0.0-0.4); LYMPHOCYTES ABSOLUTE AUTO 2.44 K/uL (1.00-4.80); MEAN CORPUSCULAR HEMOGLOBIN 29.8 pg (28.0-32.0); MEAN CORPUSCULAR HGB CONC 33.3 g/dL (32.0-36.0); MEAN CORPUSCULAR VOLUME 89.5 fL (83.0-99.0); MEAN PLATELET VOLUME 9.8 fL (9.4-12.4); MONOCYTES ABSOLUTE AUTO 0.54 K/uL (0.00-0.80); MONOCYTES PERCENT AUTO 7.7 % (0.0-8.0); NEUTROPHILS ABSOLUTE AUTO 3.72 K/uL (1.80-7.70); NEUTROPHILS PERCENT AUTO 53.4 % (41.0-71.0); PLATELET COUNT,PLT 338 K/uL (150-400); RED BLOOD CELL COUNT 4.56 M/uL (4.52-5.90); WHITE BLOOD CELL COUNT,WBC 6.97 K/uL (3.9-11.3)
[2025-01-25] MEDS: Acetaminophen 500 MG Tab PO ONE (03:53)
[2025-01-25 04:06] LABS: HEMOGLOBIN A1C 7.5 %
[2025-01-25 04:12] LABS: A/G RATIO 0.9 (0.9-1.6); ALANINE AMINOTRANSFERASE,ALT 59 IU/L (14-63); ALBUMIN 3.2 g/dL (3.4-5.0); ALKALINE PHOSPHATASE 112 U/L (46-116); ASPARTATE AMNIOTRANSFERASE,AST 43 IU/L (15-37); BILIRUBIN TOTAL 0.2 mg/dL (0.2-1.0); BLOOD UREA NITROGEN,BUN 24 mg/dL (7.0-18.0); C-REACTIVE PROTEIN 0.24 mg/dL (<0.3); CALCIUM 8.3 mg/dL (8.5-10.1); CARBON DIOXIDE,CO2 23.7 mmol/L (21.0-32.0); CHLORIDE,CL 102 mmol/L (98-107); CREATININE 0.9 mg/dL (0.8-1.3); GLUCOSE RANDOM 195 mg/dL (74-106); POTASSIUM,K 3.6 mmol/L (3.5-5.1); PROTEIN TOTAL,TP 6.7 g/dL (6.4-8.2); SODIUM,NA 138 mmol/L (136-148)
[2025-01-25 04:13] LABS: ESTIMATED GFR 114 mL/min (>60)
[2025-01-25 04:55] VITALS: BP 139/81; PULSE 96
== END 2025-01-25 04:55 | disposition home or self-care (01) ==
LOC: MW.ED 03:26
DX: S90.821A Blister (nonthermal), right foot, initial encounter (principal); M25.571 Pain in right ankle and joints of right foot; I10 Essential (primary) hypertension; E11.9 Type 2 diabetes mellitus without complications; Z79.899 Other long term (current) drug therapy; Z79.51 Long term (current) use of inhaled steroids; X58.XXXA Exposure to other specified factors, initial encounter; Y93.89 Activity, other specified
CPT/HCPCS: 36415; 73610; 73630; 80053; 80307; 82947; 83036; 85025; 85652; 86140; 96374; 99284; J1885; 99283

== ENCOUNTER 2025-01-28 03:52 | Emergency (ER) | payer MEDICAID ==
[2025-01-28 04:00] VITALS: BP 106/58; PULSE 97
== END 2025-01-28 04:21 | disposition home or self-care (01) ==
LOC: MW.ED 03:52
DX: S90.821A Blister (nonthermal), right foot, initial encounter (principal); S90.822A Blister (nonthermal), left foot, initial encounter; G89.29 Other chronic pain; E11.9 Type 2 diabetes mellitus without complications; I10 Essential (primary) hypertension; Z79.899 Other long term (current) drug therapy; Z59.00 Homelessness unspecified; Z76.5 Malingerer [conscious simulation]; X58.XXXA Exposure to other specified factors, initial encounter; Y93.89 Activity, other specified
CPT/HCPCS: 99283

== ENCOUNTER 2025-02-01 02:56 | Emergency (ER) | payer MEDICAID ==
[2025-02-01 02:59] VITALS: BP 145/85; PULSE 108
[2025-02-01] MEDS: Erythromycin Base 0.5% Ophth Oint 1 GM Tube EYERT ONE (03:19)
[2025-02-01] MEDS: Acetaminophen 500 MG Tab PO ONE (03:20)
[2025-02-01] MEDS: Acetaminophen 325 MG Tab PO ONE (03:33)
== END 2025-02-01 03:36 | disposition home or self-care (01) ==
LOC: MW.ED 02:56
DX: M25.571 Pain in right ankle and joints of right foot (principal); S05.12XD Contusion of eyeball and orbital tissues, left eye, subsequent encounter; E11.9 Type 2 diabetes mellitus without complications; I10 Essential (primary) hypertension; F17.210 Nicotine dependence, cigarettes, uncomplicated; Z79.899 Other long term (current) drug therapy; Z79.51 Long term (current) use of inhaled steroids; Z75.3 Unavailability and inaccessibility of health-care facilities; X58.XXXD Exposure to other specified factors, subsequent encounter
CPT/HCPCS: 99283; A9270

== ENCOUNTER 2025-02-02 21:12 | Emergency (ER) | payer MEDICAID ==
[2025-02-02 21:17] VITALS: BP 118/73; PULSE 95
[2025-02-02 21:42] LABS: BASOPHILS ABSOLUTE AUTO 0.06 K/uL (0.00-0.20); BASOPHILS PERCENT AUTO 0.7 % (0.0-1.0); EOSINOPHILS ABSOLUTE AUTO 0.34 K/uL (0.00-0.45); EOSINOPHILS PERCENT AUTO 3.9 % (0.0-6.0); HEMATOCRIT 42.4 % (42.0-52.0); HEMOGLOBIN 13.9 g/dL (14.0-18.0); IMMATURE GRAN ABSOLUTE AUTO 0.01 K/uL (0.00-0.05); IMMATURE GRAN PERCENT AUTO 0.1 % (0.0-0.4); LYMPHOCYTES ABSOLUTE AUTO 3.23 K/uL (1.00-4.80); LYMPHOCYTES PERCENT AUTO 37.2 % (24.0-44.0); MEAN CORPUSCULAR HEMOGLOBIN 29.5 pg (28.0-32.0); MEAN CORPUSCULAR HGB CONC 32.8 g/dL (32.0-36.0); MEAN PLATELET VOLUME 10.1 fL (9.4-12.4); MONOCYTES ABSOLUTE AUTO 1.08 K/uL (0.00-0.80); MONOCYTES PERCENT AUTO 12.4 % (0.0-8.0); NEUTROPHILS ABSOLUTE AUTO 3.96 K/uL (1.80-7.70); NEUTROPHILS PERCENT AUTO 45.7 % (41.0-71.0); PLATELET COUNT,PLT 275 K/uL (150-400); RED BLOOD CELL COUNT 4.71 M/uL (4.52-5.90); WHITE BLOOD CELL COUNT,WBC 8.68 K/uL (3.9-11.3)
[2025-02-02] MEDS: Ibuprofen 600 MG Tab PO ONE (21:48)
[2025-02-02] MEDS: Lidocaine 4% Patch TOP STA (21:49)
[2025-02-02 22:10] LABS: ALBUMIN 3.6 g/dL (3.4-5.0); BILIRUBIN TOTAL 0.3 mg/dL (0.2-1.0); CALCIUM 8.8 mg/dL (8.5-10.1); CARBON DIOXIDE,CO2 27.3 mmol/L (21.0-32.0); CREATININE 0.9 mg/dL (0.8-1.3); EST CRCL DRUG DOSING (CG) 81.02 mL/min; MAGNESIUM 2.2 mg/dL (1.8-2.4); POTASSIUM,K 3.9 mmol/L (3.5-5.1); PROTEIN TOTAL,TP 7.1 g/dL (6.4-8.2)
== END 2025-02-02 22:24 | disposition home or self-care (01) ==
LOC: MW.ED 21:12
DX: R07.9 Chest pain, unspecified (principal); I10 Essential (primary) hypertension; E11.9 Type 2 diabetes mellitus without complications; F17.200 Nicotine dependence, unspecified, uncomplicated; Z79.51 Long term (current) use of inhaled steroids; Z79.899 Other long term (current) drug therapy; Z75.3 Unavailability and inaccessibility of health-care facilities
CPT/HCPCS: 36415; 71045; 80053; 83735; 84484; 85025; 99285; A9270; 99283

== ENCOUNTER 2025-02-05 14:29 | Emergency (ER) | payer MEDICAID ==
[2025-02-05 14:54] VITALS: BP 157/97; PULSE 106
[2025-02-05] MEDS: Ketorolac 30 MG/ML SDV IM ONE (15:03)
[2025-02-05] MEDS: Orphenadrine 60 MG/2 ML Inj IM ONE (15:04)
== END 2025-02-05 15:22 | disposition home or self-care (01) ==
LOC: MW.ED 14:29
DX: R07.89 Other chest pain (principal); I10 Essential (primary) hypertension; E11.9 Type 2 diabetes mellitus without complications; Z75.3 Unavailability and inaccessibility of health-care facilities; Z79.899 Other long term (current) drug therapy; Z79.51 Long term (current) use of inhaled steroids
CPT/HCPCS: 96372; 99283; J1885; J2360

== ENCOUNTER 2025-02-08 23:34 | Emergency (ER) | payer MEDICAID ==
[2025-02-09 00:12] LABS: BASOPHILS ABSOLUTE AUTO 0.06 K/uL (0.00-0.20); BASOPHILS PERCENT AUTO 0.8 % (0.0-1.0); EOSINOPHILS ABSOLUTE AUTO 0.46 K/uL (0.00-0.45); EOSINOPHILS PERCENT AUTO 6.3 % (0.0-6.0); IMMATURE GRAN ABSOLUTE AUTO 0.03 K/uL (0.00-0.05); IMMATURE GRAN PERCENT AUTO 0.4 % (0.0-0.4); LYMPHOCYTES ABSOLUTE AUTO 2.77 K/uL (1.00-4.80); LYMPHOCYTES PERCENT AUTO 37.7 % (24.0-44.0); MEAN PLATELET VOLUME 9.9 fL (9.4-12.4); MONOCYTES ABSOLUTE AUTO 0.62 K/uL (0.00-0.80); MONOCYTES PERCENT AUTO 8.4 % (0.0-8.0); NEUTROPHILS ABSOLUTE AUTO 3.40 K/uL (1.80-7.70); NEUTROPHILS PERCENT AUTO 46.4 % (41.0-71.0); NRBC ABSOLUTE 0.00 K/uL (0.00-0.02); NRBC PERCENT 0.0 /100WBC (0.0-0.2); PLATELET COUNT,PLT 274 K/uL (150-400); RED BLOOD CELL COUNT 4.80 M/uL (4.52-5.90); WHITE BLOOD CELL COUNT,WBC 7.34 K/uL (3.9-11.3)
[2025-02-09 00:52] LABS: A/G RATIO 0.9 (0.9-1.6); ALANINE AMINOTRANSFERASE,ALT 52 IU/L (14-63); ASPARTATE AMNIOTRANSFERASE,AST 34 IU/L (15-37); BILIRUBIN TOTAL 0.3 mg/dL (0.2-1.0); BLOOD UREA NITROGEN,BUN 26 mg/dL (7.0-18.0); CARBON DIOXIDE,CO2 29.0 mmol/L (21.0-32.0); CHLORIDE,CL 104 mmol/L (98-107); CREATININE 1.1 mg/dL (0.8-1.3); EST CRCL DRUG DOSING (CG) 72.39 mL/min; ETHANOL BLOOD MEDICAL <3 mg/dL; GLUCOSE RANDOM 134 mg/dL (74-106); POTASSIUM,K 3.7 mmol/L (3.5-5.1); PROTEIN TOTAL,TP 7.0 g/dL (6.4-8.2); SODIUM,NA 141 mmol/L (136-148); TSH ULTRASENSITIVE 1.00 uIU/mL (0.36-3.74)
[2025-02-09 01:05] VITALS: BP 126/73; PULSE 84
[2025-02-09 01:12] LABS: ESTIMATED GFR 90 mL/min (>60)
== END 2025-02-09 01:05 | disposition home or self-care (01) ==
LOC: MW.ED 23:34
DX: S60.812A Abrasion of left wrist, initial encounter (principal); E11.9 Type 2 diabetes mellitus without complications; F32.A Depression, unspecified; F17.200 Nicotine dependence, unspecified, uncomplicated; Z59.00 Homelessness unspecified; X78.1XXA Intentional self-harm by knife, initial encounter; Y93.89 Activity, other specified
CPT/HCPCS: 36415; 80053; 80143; 80179; 80307; 83735; 84443; 85025; 93005; 99284; A9270; 93010

== ENCOUNTER 2025-02-12 16:52 | Emergency (ER) | payer MEDICAID ==
[2025-02-12 17:05] VITALS: BP 151/73; PULSE 108
== END 2025-02-12 17:58 | disposition left against medical advice (07) ==
LOC: MW.ED 16:52
DX: Z53.21 Procedure and treatment not carried out due to patient leaving prior to being seen by health care provider (principal)
CPT/HCPCS: 93005

== ENCOUNTER 2025-02-12 20:39 | Emergency (ER) | payer MEDICAID | END 2025-02-12 21:13 | disposition left against medical advice (07) | LOC: MW.ED 20:39 | DX: Z53.21 Procedure and treatment not carried out due to patient leaving prior to being seen by health care provider (principal) ==

== ENCOUNTER 2025-02-13 12:11 | Emergency (ER) | payer MEDICAID ==
[2025-02-13 13:48] VITALS: BP 115/59; PULSE 88
== END 2025-02-13 13:48 | disposition home or self-care (01) ==
LOC: MW.ED 12:11
DX: J40 Bronchitis, not specified as acute or chronic (principal); R07.89 Other chest pain; I10 Essential (primary) hypertension; E11.40 Type 2 diabetes mellitus with diabetic neuropathy, unspecified; Z79.899 Other long term (current) drug therapy
CPT/HCPCS: 71045; 71045-26; 93005; 99285

== ENCOUNTER 2025-02-15 16:10 | Emergency (ER) | payer MEDICAID ==
[2025-02-15 16:34] VITALS: BP 125/94; PULSE 90
[2025-02-15 16:55] LABS: APPEARANCE,URINE CLEAR; GLUCOSE,URINE NEGATIVE (NEGATIVE); OCCULT BLOOD,URINE NEGATIVE (NEGATIVE)
[2025-02-15 17:00] LABS: BASOPHILS ABSOLUTE AUTO 0.04 K/uL (0.00-0.20); BASOPHILS PERCENT AUTO 0.4 % (0.0-1.0); EOSINOPHILS ABSOLUTE AUTO 0.12 K/uL (0.00-0.45); EOSINOPHILS PERCENT AUTO 1.2 % (0.0-6.0); IMMATURE GRAN ABSOLUTE AUTO 0.02 K/uL (0.00-0.05); IMMATURE GRAN PERCENT AUTO 0.2 % (0.0-0.4); LYMPHOCYTES ABSOLUTE AUTO 2.34 K/uL (1.00-4.80); LYMPHOCYTES PERCENT AUTO 23.8 % (24.0-44.0); MEAN PLATELET VOLUME 10.1 fL (9.4-12.4); MONOCYTES ABSOLUTE AUTO 0.66 K/uL (0.00-0.80); MONOCYTES PERCENT AUTO 6.7 % (0.0-8.0); NEUTROPHILS ABSOLUTE AUTO 6.66 K/uL (1.80-7.70); NEUTROPHILS PERCENT AUTO 67.7 % (41.0-71.0); NRBC ABSOLUTE 0.00 K/uL (0.00-0.02); NRBC PERCENT 0.0 /100WBC (0.0-0.2); PLATELET COUNT,PLT 295 K/uL (150-400); RED BLOOD CELL COUNT 5.02 M/uL (4.52-5.90); WHITE BLOOD CELL COUNT,WBC 9.84 K/uL (3.9-11.3)
[2025-02-15 17:04] LABS: AMPHETAMINES SCREEN, URINE NEGATIVE (CUTOFF=500); BUPRENORPHINE SCREEN,URINE NEGATIVE (CUTOFF=10); METHADONE SCREEN, URINE NEGATIVE (CUTOFF=200); METHAMPHETAMINES SCREEN, URINE NEGATIVE (CUTOFF=500); OXYCODONE SCREEN,URINE NEGATIVE (CUT0FF=100); PCP SCREEN,URINE NEGATIVE (CUTOFF=25); THC SCREEN,URINE 20 NG/ML PRESUMPTIVE POSITIVE (CUTOFF=50)
[2025-02-15 17:38] LABS: A/G RATIO 1.0 (0.9-1.6); ALANINE AMINOTRANSFERASE,ALT 46 IU/L (14-63); ASPARTATE AMNIOTRANSFERASE,AST 28 IU/L (15-37); BILIRUBIN TOTAL 0.3 mg/dL (0.2-1.0); BLOOD UREA NITROGEN,BUN 11 mg/dL (7.0-18.0); CARBON DIOXIDE,CO2 30.8 mmol/L (21.0-32.0); CHLORIDE,CL 102 mmol/L (98-107); CREATININE 0.7 mg/dL (0.8-1.3); EST CRCL DRUG DOSING (CG) 104.17 mL/min; ETHANOL BLOOD MEDICAL <3 mg/dL; GLUCOSE RANDOM 142 mg/dL (74-106); POTASSIUM,K 3.6 mmol/L (3.5-5.1); PROTEIN TOTAL,TP 7.0 g/dL (6.4-8.2); SODIUM,NA 140 mmol/L (136-148); TSH ULTRASENSITIVE 1.02 uIU/mL (0.36-3.74)
[2025-02-15 17:41] LABS: ESTIMATED GFR 123 mL/min (>60)
== END 2025-02-15 18:08 | disposition home or self-care (01) ==
LOC: MW.ED 16:10
DX: R45.89 Other symptoms and signs involving emotional state (principal); I10 Essential (primary) hypertension; E11.9 Type 2 diabetes mellitus without complications; Z75.3 Unavailability and inaccessibility of health-care facilities; Z79.899 Other long term (current) drug therapy
CPT/HCPCS: 36415; 80053; 80143; 80179; 80305; 80307; 81003; 83735; 84443; 85025; 99284

== ENCOUNTER 2025-02-27 21:16 | Emergency (ER) | payer MEDICAID ==
[2025-02-27 21:34] VITALS: BP 142/78; PULSE 111
== END 2025-02-27 21:35 | disposition left against medical advice (07) ==
LOC: MW.ED 21:16
DX: F41.9 Anxiety disorder, unspecified (principal); I10 Essential (primary) hypertension; E11.9 Type 2 diabetes mellitus without complications; F17.210 Nicotine dependence, cigarettes, uncomplicated; Z79.899 Other long term (current) drug therapy
CPT/HCPCS: 99283

== ENCOUNTER 2025-04-03 11:13 | Emergency (ER) | payer MEDICAID ==
[2025-04-03 12:26] VITALS: BP 122/74; PULSE 74
== END 2025-04-03 12:25 | disposition home or self-care (01) ==
LOC: MW.ED 11:13
DX: T69.021A Immersion foot, right foot, initial encounter (principal); T69.022A Immersion foot, left foot, initial encounter; I10 Essential (primary) hypertension; E11.40 Type 2 diabetes mellitus with diabetic neuropathy, unspecified; Z79.899 Other long term (current) drug therapy; Z75.3 Unavailability and inaccessibility of health-care facilities; X31.XXXA Exposure to excessive natural cold, initial encounter
CPT/HCPCS: 99283

== ENCOUNTER 2025-04-19 00:23 | Emergency (ER) | payer MEDICAID ==
[2025-04-19 01:49] VITALS: BP 136/76; PULSE 82
== END 2025-04-19 01:48 | disposition home or self-care (01) ==
LOC: MW.ED 00:23
DX: R45.851 Suicidal ideations (principal); I10 Essential (primary) hypertension; E11.9 Type 2 diabetes mellitus without complications; F17.210 Nicotine dependence, cigarettes, uncomplicated; Z79.899 Other long term (current) drug therapy
CPT/HCPCS: 99282; 99284

== ENCOUNTER 2025-04-20 21:55 | Emergency (ER) | payer MEDICAID ==
[2025-04-20] MEDS: Ketorolac 30 MG/ML SDV IM ONE (23:06)
[2025-04-20 23:23] VITALS: BP 112/61; PULSE 89
== END 2025-04-20 23:23 | disposition home or self-care (01) ==
LOC: MW.ED 21:55
DX: H66.93 Otitis media, unspecified, bilateral (principal); I10 Essential (primary) hypertension; E11.9 Type 2 diabetes mellitus without complications; Z79.899 Other long term (current) drug therapy
CPT/HCPCS: 96372; 99283; A9270; J1885

== ENCOUNTER 2025-04-25 20:03 | Emergency (ER) | payer MEDICAID ==
[2025-04-25 20:24] VITALS: BP 146/87
[2025-04-25 22:00] VITALS: PULSE 78
== END 2025-04-25 22:00 | disposition home or self-care (01) ==
LOC: MW.ED 20:03
DX: J06.9 Acute upper respiratory infection, unspecified (principal); J45.909 Unspecified asthma, uncomplicated; I10 Essential (primary) hypertension; E11.9 Type 2 diabetes mellitus without complications; Z79.899 Other long term (current) drug therapy
CPT/HCPCS: 71045; 99285; J7620; 99283; A9270-GY

== ENCOUNTER 2025-05-01 23:47 | Emergency (ER) | payer MEDICAID ==
[2025-05-02 03:06] VITALS: BP 129/83; PULSE 88
[2025-05-02] MEDS: Ondansetron 4 MG Tab.DIS PO PRN (03:46)
== END 2025-05-02 03:54 | disposition home or self-care (01) ==
LOC: MW.ED 23:47
DX: R11.0 Nausea (principal); I10 Essential (primary) hypertension; E11.9 Type 2 diabetes mellitus without complications; Z79.899 Other long term (current) drug therapy; Z75.3 Unavailability and inaccessibility of health-care facilities
CPT/HCPCS: 99283; A9270

== ENCOUNTER 2025-05-12 11:00 | Emergency (ER) | payer MEDICAID ==
[2025-05-12 11:33] VITALS: BP 143/85; PULSE 99
== END 2025-05-12 12:19 ==
LOC: MW.ED 11:00
DX: Z02.89 Encounter for other administrative examinations (principal); I10 Essential (primary) hypertension; E11.9 Type 2 diabetes mellitus without complications; F17.200 Nicotine dependence, unspecified, uncomplicated; Z79.899 Other long term (current) drug therapy
CPT/HCPCS: 99282; 99283

== ENCOUNTER 2025-05-17 00:16 | Emergency (ER) | payer MEDICAID ==
[2025-05-17 00:34] VITALS: BP 134/68; PULSE 80
== END 2025-05-17 00:43 | disposition home or self-care (01) ==
LOC: MW.ED 00:16
DX: J06.9 Acute upper respiratory infection, unspecified (principal); B34.9 Viral infection, unspecified; I10 Essential (primary) hypertension; E11.40 Type 2 diabetes mellitus with diabetic neuropathy, unspecified; Z21 Asymptomatic human immunodeficiency virus [HIV] infection status; F17.200 Nicotine dependence, unspecified, uncomplicated; Z79.84 Long term (current) use of oral hypoglycemic drugs; Z79.899 Other long term (current) drug therapy
CPT/HCPCS: 99283; 99284